=== PATIENT | female | born 1955 | race Caucasian/White ===

== ENCOUNTER → 2018-02-22 01:01 | Outpatient (CLI) | payer OTHER, SELFPAY ==
--- NOTE | 2018-02-22 10:48 | DI.REPORT_ITS ---
SYMPTOMS/DIAGNOSIS: S/P URETEROSCOPY WITH STONE EXTRACTION, ? HYDRONEPHROSIS OR ERIKA KIDNEY STONES, N20.0 RENAL ULTRASOUND: Comparison is made with noncontrast CT dated [id number]. The previously noted left hydronephrosis has resolved. Multiple echogenic foci are seen in both kidneys, greatest at the lower pole of the right kidney. There are multiple bilateral renal cysts. The largest is in the mid right kidney measuring 2.2 cm. There are no perinephric collections. The bladder is unremarkable with a prevoid volume of 58 cc's. Both ureteral jets were visualized. There is no postvoid residual. IMPRESSION: Bilateral nephrolithiasis and right renal cysts. No evidence of hydronephrosis.
== END ==
PROVIDERS: PCP Family Medicine; Visit Provider Urology
DX: N20.0 Calculus of kidney (principal); N28.1 Cyst of kidney, acquired
CPT/HCPCS: 76770

== ENCOUNTER 2018-05-02 13:17 | Outpatient (CLI) | payer OTHER, SELFPAY | END 2018-05-02 13:37 | PROVIDERS: PCP Family Medicine; Visit Provider Urology | DX: Z01.818 Encounter for other preprocedural examination (principal) | CPT/HCPCS: 87086 ==

== ENCOUNTER 2018-05-30 12:23 | Outpatient (CLI) | payer OTHER, SELFPAY | END 2018-05-30 12:43 | PROVIDERS: PCP Family Medicine; Visit Provider Urology | DX: R31.9 Hematuria, unspecified (principal) | CPT/HCPCS: 87086 ==

== ENCOUNTER 2018-07-15 01:29 | Outpatient (CLI) | payer OTHER, SELFPAY ==
--- NOTE | 2018-07-15 08:34 | DI.US_ITS ---
SYMPTOM/DIAGNOSIS: BILAT KIDNEY STONES, N20.0, S/P RT SIDED TREATMENT RENAL ULTRASOUND: Routine examination. Comparison is made with CT scan of 01/19/18. Comparison ultrasound is 02/22/18. The right kidney measures 10.5 cm. long. There are several renal cysts. There are multiple echogenic foci seen within the right kidney, the largest measuring 1 cm. There is renal cortical scarring seen in the upper pole. The appearance of the kidney is similar compared to the prior examinations. No obstruction or solid renal mass is seen. The left kidney measures 10.5 cm. long. There are several echogenic foci seen within the kidney. No hydronephrosis is present. There are left renal cysts noted. The prevoid urinary bladder volume is 144 cc's. The bladder wall appeared smooth. Both ureteral jets were seen. No intraluminal masses are present. The bladder completely emptied upon voiding. IMPRESSION: 1. Bilateral nephrolithiasis. 2. Right renal scarring. 3. Bilateral renal cysts.
== END 2018-07-15 01:49 ==
PROVIDERS: PCP Family Medicine; Visit Provider Urology
DX: N20.0 Calculus of kidney (principal); N28.1 Cyst of kidney, acquired
CPT/HCPCS: 76770

== ENCOUNTER 2019-04-04 14:43 | Outpatient (CLI) | payer OTHER, SELFPAY ==
--- NOTE | 2019-04-04 13:00 | DI.RAD_ITS ---
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 COMPARISON: No exams were available for comparison TECHNIQUE: 2D digital imaging was performed. FINDINGS: The bony structures are normally mineralized. Severe degenerative changes involving the 1st metacarp al multangular joint are identified. The examination is otherwise unremarkable.
== END 2019-04-04 15:03 ==
PROVIDERS: PCP Family Medicine; Visit Provider Nurse Practitioner
DX: M18.12 Unilateral primary osteoarthritis of first carpometacarpal joint, left hand (principal)
CPT/HCPCS: 73130

== ENCOUNTER 2019-06-19 00:08 | Outpatient (CLI) | payer OTHER, SELFPAY ==
--- NOTE | 2019-06-19 08:12 | DI.MAMMO_ITS ---
EXAM: MG MAMMO SCREENING CLINICAL HISTORY: SCREENING, Z12.39. TECHNIQUE: Full field digital CC and MLO mammographic images were obtained with 3D tomosynthesis and utilizing computer aided detection (CAD). COMPARISON: [id number] available for comparison. FINDINGS: Masses/Architectural Distortion: None seen. Microcalcifications: No suspicious pleomorphic-type are seen. Skin Thickening/Nipple Retraction: None. IMPRESSION: 1. No significant interval change with no specific features of malignancy noted. 2. Unless there is more urgent need, screening mammography is recommended, as per [employer] guidelines. BI-RADS Cat 1 - Negative Breast Density - Category A - Almost entirely fatty A negative radiographic report should not delay biopsy if a dominant or clinically suspicious mass is present. Up to ten percent of cancers are not identified on mammography. A negative report may reinforce clinical impression. Adenosis and dense breasts may obscure an underlying neoplasm. False positive reports average 6 to 10%. Patient will receive a letter notifying them of these results.
== END 2019-06-19 00:28 ==
PROVIDERS: PCP Family Medicine; Visit Provider Nurse Practitioner
DX: Z12.31 Encounter for screening mammogram for malignant neoplasm of breast (principal)
CPT/HCPCS: 77063; 77067

== ENCOUNTER 2019-11-20 14:10 | Outpatient (REF) | payer BC, SELFPAY ==
[2019-11-20 18:30] LABS: Hemoglobin A1C 6.1 % (3.8-5.6)
[2019-11-20 18:43] LABS: Vitamin D 25 Total 24.6 ng/ml (30-100)
[2019-11-20 18:47] LABS: ALT 27 U/L (14-59); AST 18 U/L (15-37); Albumin 3.7 g/dL (3.4-5.0); Alkaline Phosphatase 108 U/L (46-116); Anion Gap 7.1 mmol/L (3-11); BUN 18 mg/dL (7-18); Bilirubin, Total 0.4 mg/dL (0.2-1.0); CO2 28.9 mmol/L (21.0-32.0); CREATININE 0.93 mg/dL (0.55-1.02); Calcium 8.8 mg/dL (8.5-10.1); Calculated LDL 145 mg/dL (<100); Chloride 104 mmol/L (98-107); Cholesterol 223 mg/dL (<200); Glucose 87 mg/dL (74-106); HDL Cholesterol 50 mg/dL (40-60); Potassium 3.9 mmol/L (3.5-5.1); Sodium 140 mmol/L (136-145); Total Protein 6.9 g/dL (6.4-8.2); Triglyceride 141 mg/dL (<150); Vitamin B12 465 pg/mL (193-986)
== END 2019-11-20 14:30 ==
LOC: NCHCN 14:10
PROVIDERS: PCP Family Medicine; Visit Provider Nurse Practitioner
DX: R73.03 Prediabetes (principal); M85.80 Other specified disorders of bone density and structure, unspecified site; E78.5 Hyperlipidemia, unspecified
CPT/HCPCS: 80053; 80061; 82306; 82607; 83036

== ENCOUNTER 2019-12-19 01:47 | Outpatient (CLI) | payer BC, SELFPAY ==
--- NOTE | 2019-12-19 07:15 | DI.US_ITS ---
EXAM: US RENAL CLINICAL HISTORY: monitor known stone,. TECHNIQUE: Shah scale, color and spectral Doppler were used. COMPARISON: CT RENAL COLIC WO CONTRAST from 01/19/2018 US US renal from 07/15/2018 FINDINGS: Renal size in cm: Right: 10.6 left: 9.6 Echogenicity: Normal. Hydronephrosis: No. Cyst or mass: Multiple right simple renal cysts. Nephrolithiasis: Multiple bilateral nonobstructing stones. The largest on the right is in the superio r pole and measures 9 mm. The largest on the left is in the superior pole and also measures 9 mm. Other findings: None. Bladder:Normal. Ureteral jets: Right: Not visualized Left: Not visualized Prevoid vol:512 cc Postvoid vol:39 cc DOPPLER FINDINGS: Symmetric blood flow to the kidneys. IMPRESSION: 1. Bilateral nephrolithiasis. No evidence of hydronephrosis. 2. Right renal cysts. DATA REPOSITORY:
== END 2019-12-19 02:07 ==
PROVIDERS: PCP Family Medicine; Visit Provider Urology
DX: N20.0 Calculus of kidney (principal); N28.1 Cyst of kidney, acquired
CPT/HCPCS: 76770

== ENCOUNTER 2020-06-08 22:22 | Emergency (ER) | payer BC, SELFPAY ==
[2020-06-08 22:26] VITALS: BP 157/98; PULSE 83; RESP 24; TEMP 36.8; O2SAT 94
--- NOTE | 2020-06-08 22:30 | DI.CT_ITS ---
EXAM: CT RENAL COLIC WO CLINICAL HISTORY: Right flank pain. TECHNIQUE: Imaging Protocol: Axial computed tomography images with coronal and sagittal reformatted images were created and reviewed. COMPARISON: CT RENAL COLIC WO CONTRAST from 01/19/2018 FINDINGS: ABDOMEN: Lung Bases: Hiatal hernia noted. Mild increased markings right lung base. No confluent infiltrates in the visualized lung bases. No pleural effusions Liver: No obvious hepatic lesions evident on this noninfused study. Gallbladder and biliary tract: No obvious gallbladder pathology. CBD is not dilated. Pancreas: Normal density, no abnormal calcifications or inflammatory process. Spleen: Normal. Kidneys: Is bilateral nephrolithiasis again noted. However there is now bilateral hydronephrosis als o evident. In addition 2 nonobstructive calculi within both kidneys there is a obstructing calculus at the mid aspect of the right ureter which show some measures 10-11 millimeters in size. There is a lso a 13 millimeter calculus in the proximal left ureter, also with some dilatation left collecting s ystem above this level.. The ureters below these calculi do not contain additional calculi and no ca lculi ureterovesical junctions nor within the nondistended urinary bladder. No obvious bladder kiesha s identified. There is also a cyst in the lateral cortex of the right kidney again noted which measu res 2.4 x 2.4 centimetres. Adrenal glands: No mass is seen. Lymph nodes: Within normal limits. Abdominal Aorta: Abdominal portion non-dilated. PELVIS: Bladder:Unremarkable Bowel: No obstruction or bowel wall thickening. There is hyperdense material in the appendix but the appendix is otherwise unremarkable. No evidence of acute appendicitis. Sigmoid diverticulosis witho ut evidence of obvious acute diverticulitis. Peritoneal cavity: There is no ascites. Reproductive organs: Within normal limits. Bones: No lytic osseous lesions IMPRESSION: There is a large 13 millimeter calculus in the proximal left ureter with some dilatation left collect ing system above this level.There is also a 10-11 millimeter calculus at the mid aspect of the opposi te-right ureter dilatation of the right collecting system above this level. There also multiple calc leslie seen within both kidneys + a benign cortical cyst measuring 2.4 centimetres in the right kidney. No calculi in the urinary bladder. RADIATION DOSE DELIVERED: 843.25mGy.cm Total DLP DATA REPOSITORY: All CT scans at this facility are submitted to the National Radiology Data Registry (NRDR) Dose Index Registry (DIR) with the [employer] ([employer]). RADIATION OPTIMIZATION: All CT scans at this facility use at least one of these dose optimization te chniques: automated exposure control; mA and/or kV adjustment per patient size (includes targeted exa ms where dose is matched to clinical indication); or iterative reconstruction.
--- NOTE | 2020-06-08 22:34 | W.ED.GENAD ---
Discharge Plan Disposition Patient Disposition: [facility] Condition: Stable Discharge Details Clinical Impression: Bilateral ureteral calculi, Hydronephrosis with urinary obstruction due to ureteral calculus Primary Care Provider: Macy Pete ED Provider: Santiago Monzon [place] Meds and New Rx's Prescriptions: No Action oxybutynin chloride 5 mg tablet 5 mg PO TID PRN (Reason: bladder spasms) Qty: 10 RF: 0 fluticasone propion-salmeterol [Advair Diskus] 1 EACH blister with device 1 ea Inhalation BID RF: 0 omeprazole 20 MG capsule,delayed release(DR/EC) 20 mg PO DAILY RF: 0 montelukast 10 MG tablet 10 mg PO DAILY RF: 0 albuterol sulfate [Proventil HFA] 6.7 GM HFA aerosol inhaler 1 - 2 puff Inhalation PRN RF: 0 Discharge Data Discharge Date/Time-TO BE ENTERED AT DEPARTURE: 06/09/20 02:35 Medical Decision Making <Ny Vital - Last Filed: 06/09/20 17:36> 64 year old female presents to the ER with right flank pain which began around 4 PM this afternoon. Patient has a history of kidney stones and has had to have lithotripsies in the past. This is associated with nausea vomiting. She reports right-sided flank pain that radiates around to the right lower quadrant. Denies any fever. CBC shows white blood cell count of 12.38, sodium 138 potassium 3.9, BUN is 23, creatinine 1.31 GFR is 40.[address] RENAL COLIC WO CONTRAST 01/19/2018 10:25 AM FINDINGS: Mediastinal space: Moderate hiatal hernia. Liver: Hepatic steatosis. Gallbladder and bile ducts: Normal. No calcified stones. No ductal dilation. Pancreas: Normal. No ductal dilation. Spleen: Normal. No splenomegaly. Adrenal glands: Normal. No mass. Kidneys and ureters: 13.5 mm calculus in the left proximal ureter with mild left hydroureteronephrosis. 10 mm calculus in the right mid ureter with moderate right hydroureteronephrosis. Nonobstructing renal calculi. Stomach and bowel: Colonic diverticula. Appendix: No evidence of appendicitis. Intraperitoneal space: Unremarkable. No free air. No significant fluid collection. Vasculature: Unremarkable. No abdominal aortic aneurysm. Lymph nodes: Unremarkable. No enlarged lymph nodes. Urinary bladder: Unremarkable as visualized. Reproductive: Status post hysterectomy. Bones/joints: Unremarkable. No acute fracture. Soft tissues: Unremarkable. IMPRESSION: 1. 13.5 mm calculus in the left proximal ureter with mild left hydroureteronephrosis. 2. 10 mm calculus in the right mid ureter with moderate right hydroureteronephrosis. Thank you for allowing us to participate in the care of your patient. Dictated and Authenticated by: Eben Salmon MD Patient does have a history of bilateral kidney stones. Previous ultrasound showed 9 mm and [address] are noted above. Care is to be handed off to Dr. Nicolás BLACK pending urology consult due to possible infected kidney stone urinalysis shows positive leukocytes 10-20 WBCs. Discussed patient case and details with him. On patient reevaluation she is feeling much better. Discussed the CT results with her she verbalizes understanding at this time. She states that she has seen a specialist at [facility] for lithotripsy procedure in the past. At the time of this dictation patient was hemodynamically stable and alert and oriented. <Santiago Monzon MD - Last Filed: 06/09/20 01:38> Patient's history and tonight clinical presentation discussed with neurology at [facility], Dr. Oliveros. Patient without fever or chills with minimally elevated white count. Despite 10-20 white cells in the urine likely not infected. However, given the size of both stones present with obstruction the risk of kidney failure is quite high. Patient accepted for transfer to [facility] for stent placement later today. Patient aware of reasoning and agrees with transfer. At this time she is comfortable having just received a dose of morphine. She has made n.p.o. and fluids started. She is transferred to [facility] urology service in stable condition. Medical Records Medical records reviewed: Yes I reviewed the patient's medical records. Lab Data Lab results reviewed: Yes I reviewed the patient's lab results. HPI <Ny Vital - Last Filed: 06/09/20 17:36> General Mode of arrival: ambulatory. Date/Time Provider Initiated Documentation: 06/08/20 22:27. Limitations to Documentation: no limitations. Information obtained by: patient. HPI Narrative: 64-year-old female presents to the ER with right flank pain which began around 4 PM this afternoon. Patient has a history of kidney stones and has had to have lithotripsies in the past. There is associated with nausea vomiting. She reports right-sided flank pain that radiates around to the right lower quadrant. Denies any fever. Related Data Home Medications Medication Instructions Recorded Confirmed albuterol sulfate [Proventil HFA] 1 - 2 puff INHALATION PRN inhaler 07/23/15 06/08/20 fluticasone propion-salmeterol 1 ea INHALATION BID disk 07/23/15 06/08/20 [Advair Diskus] montelukast 10 mg PO DAILY tab-cap 07/23/15 06/08/20 omeprazole 20 mg PO DAILY tab-cap 07/23/15 06/08/20 oxybutynin chloride 5 mg tablet 5 mg PO TID PRN #10 tab 06/06/18 06/08/20 Previous Rx's Medication Instructions Recorded oxybutynin chloride 5 mg tablet 5 mg PO TID PRN #10 tab 06/06/18 Allergies Allergy/AdvReac Type Severity Reaction Status Date / Time No Known Allergies Allergy Unverified 06/06/18 10:04 General Stated Complaint: Abd Prob ALEXEI: 3 Review of Systems <Ny Vital - Last Filed: 06/09/20 17:36> Narrative: Constitutional: Negative for weight loss, alert and oriented, well groomed, normal body habitus, appears comfortable. HEENT: Denies trauma, headaches, blurry vision, nasal discharge, sore throat, trouble swallowing. Chest: Denies chest pain, palpitations, irregular rhythm, hypertension. Respiratory: Denies Shortness of breath, cough, hemoptysis. GI: Denies diarrhea, constipation. Positive abdominal pain, nausea vomiting. : Denies dysuria, hematuria, rectal bleeding. Positive right-sided flank pain. Neuro: Denies dizziness, blurry vision, weakness, syncope, headache or facial numbness. Hematologic: Denies easy bruising, intolerance to heat or cold, hair loss. PFSH <Ny Vital - Last Filed: 06/09/20 17:36> Social History Smoking/Tobacco Use Status: Never Smoking risk assessment performed?: Yes Alcohol Intake: current Alcohol Intake frequency: a few times a month Drug use: Never Do you feel safe at home: Yes Do you feel safe in your relationship?: Yes Exam <Ny Vital - Last Filed: 06/09/20 17:36> Narrative Exam Narrative: Constitutional: Alert and oriented x3. Appears stated age. Normal body habitus. Appears in acute distress. Head: Normocephalic, no trauma. Eyes: Pupils PERRLA, Red reflex noted, EOM's intact. Eyelids symmetrical without lesions, discharge, or swelling. ENT: Bilateral TM's WNL, External ear normal to inspection, no mastoid TTP, swelling, or erythema, Nasal turbinates WNL, no nasal discharge. Normal dentition, Posterior pharynx WNL, no exudate. Chest: RRR, Normal S1, S2, distal pulses intact. Resp: Lungs clear to auscultation bilaterally, no wheezes, rales, or rhonchi. Abdominal: Right CVA tenderness and right lower quadrant tenderness to palpation. Musculoskeletal: Normal gait, 5/5 strength to all four extremities. Skin: No suspicious rashes or lesions. Capillary refill less than 2 sec. Neurologic: Cranial nerves II-XII intact. Alert and oriented x 3. DTR's intact. Hematologic/Lymphatic: No ecchymosis, no lymphadenopathy. Course <Ny Vital - Last Filed: 06/09/20 17:36> Vital Signs Vital signs: Vital Signs Pulse 83 06/08/20 22:26 Respiratory Rate 24 06/08/20 22:26 Blood Pressure 157/98 H 06/08/20 22:26 Pulse Oximetry 94 06/08/20 22:26 Pulse 83 06/08/20 22:26 Respiratory Rate 24 06/08/20 22:26 Respiratory Effort 06/08/20 22:31 Blood Pressure 157/98 H 06/08/20 22:26 Blood Pressure Position Sitting 06/08/20 22:26 Pulse Oximetry 94 06/08/20 22:26 Oxygen Delivery Method Room Air 06/08/20 22:26 Oxygen Flow Rate 0 06/08/20 22:26 Pain Level 10 06/08/20 22:26 Sign Out <Ny Vital - Last Filed: 06/09/20 17:36> Sign Out Data: Sign Out Comment: Pending urology consult. Last updated by Ny Vital at 06/09/20 00:52
[2020-06-08] MEDS: Normal Saline 1,000 ML 1000 ML IV (22:53)
[2020-06-08 22:54] LABS: Abs Immature Grans 0.03 10^3/uL (0.0-0.06); Absolute Basophil Count 0.05 10^3/uL (0.0-0.2); Absolute Lymphocyte Count 0.99 10^3/uL (1.2-3.4); Absolute Monocyte Count 0.58 10^3/uL (0.1-0.8); Basophils % 0.4; Eosinophils % 0.6; HCT 41.5 % (36.0-46.0); HGB 13.2 g/dL (11.2-15.7); Immature Grans % 0.2; MCH 27.4 pg (27.0-33.0); MCHC 31.8 % (32.0-36.0); MCV 86.3 fL (80-95); MPV 11.2 fL (8.0-11.0); Monocytes % 4.7; Neutrophils % 86.1; Nucleated RBC 0 %; Platelet Count 279 10^3/uL (130-400); RBC 4.81 10^6/uL (3.93-5.22); RDW 13.9 % (11.7-14.6); RDW-SD 43.9 fL; WBC 12.38 10^3/uL (4.4-10.8)
[2020-06-08] MEDS: Ketorolac 30 MG/ML VIAL IVP (22:54)
[2020-06-08 22:55] LABS: Absolute Eosinophil Count 0.07 10^3/uL (0.0-0.7); Absolute Neutrophil Count 10.66 10^3/uL (1.2-6.7)
[2020-06-08] MEDS: Ondansetron 4 MG/2 ML VIAL IVP (22:55)
[2020-06-08 23:08] LABS: ALT 29 U/L (14-59); AST 18 U/L (15-37); Alkaline Phosphatase 108 U/L (46-116); Anion Gap 8.2 mmol/L (3-11); BUN 23 mg/dL (7-18); Bilirubin, Total 0.5 mg/dL (0.2-1.0); CO2 27.8 mmol/L (21.0-32.0); CREATININE 1.31 mg/dL (0.55-1.02); Calcium 9.2 mg/dL (8.5-10.1); Chloride 102 mmol/L (98-107); Estimated GFR 40.88 (mL/min/1.73m2); Glucose 162 mg/dL (74-106); Potassium 3.9 mmol/L (3.5-5.1); Sodium 138 mmol/L (136-145); Total Protein 8.1 g/dL (6.4-8.2)
[2020-06-08 23:32] VITALS: BP 134/84; PULSE 85; RESP 18; TEMP 37.1; O2SAT 97
--- NOTE | 2020-06-08 23:41 | DI.VRAD_ITS ---
PROCEDURE INFORMATION: Exam: CT Abdomen And Pelvis Without Contrast Exam date and time: 06/08/2020 11:27 PM Age: 64 years old Clinical indication: Other: Flank pain TECHNIQUE: Imaging protocol: Computed tomography of the abdomen and pelvis without contrast. COMPARISON: CT RENAL COLIC WO CONTRAST 01/19/2018 10:25 AM FINDINGS: Mediastinal space: Moderate hiatal hernia. Liver: Hepatic steatosis. Gallbladder and bile ducts: Normal. No calcified stones. No ductal dilation. Pancreas: Normal. No ductal dilation. Spleen: Normal. No splenomegaly. Adrenal glands: Normal. No mass. Kidneys and ureters: 13.5 mm calculus in the left proximal ureter with mild left hydroureteronephrosis. 10 mm calculus in the right mid ureter with moderate right hydroureteronephrosis. Nonobstructing renal calculi. Stomach and bowel: Colonic diverticula. Appendix: No evidence of appendicitis. Intraperitoneal space: Unremarkable. No free air. No significant fluid collection. Vasculature: Unremarkable. No abdominal aortic aneurysm. Lymph nodes: Unremarkable. No enlarged lymph nodes. Urinary bladder: Unremarkable as visualized. Reproductive: Status post hysterectomy. Bones/joints: Unremarkable. No acute fracture. Soft tissues: Unremarkable. IMPRESSION: 1. 13.5 mm calculus in the left proximal ureter with mild left hydroureteronephrosis. 2. 10 mm calculus in the right mid ureter with moderate right hydroureteronephrosis. Dictated and Authenticated by: Eben Salmon MD. Ordering:RAMY Alejandra MD
[2020-06-08 23:56] LABS: Bilirubin Negative (Negative); Blood Moderate (Negative); Clarity Clear (Clear); Glucose Negative (Negative); Ketones Negative (Negative); Leukocyte Esterase Moderate (Negative); Nitrite Negative (Negative); Specific Gravity 1.025 (1.005-1.025); Urobilinogen 0.2 EU/dL (Up TO 0.2)
[2020-06-09 00:06] LABS: Bacteria Negative HPF (Negative); Crystals Negative HPF (Negative); Epithelial Cells Rare HPF (Negative); Mucus Negative (Negative)
[2020-06-09 00:07] LABS: C & S Indicated? Yes; Casts Negative LPF (Negative)
[2020-06-09 00:44] VITALS: BP 138/68; PULSE 78; O2SAT 98
[2020-06-09 02:29] VITALS: BP 158/65; PULSE 78; RESP 18; TEMP 36.8; O2SAT 98
== END 2020-06-09 02:35 | disposition short-term general hospital (02) ==
PROVIDERS: Registered Nurse Emergency; Emergency Provider Emergency Medicine; PCP Family Medicine
DX: N13.2 Hydronephrosis with renal and ureteral calculous obstruction (principal); R11.2 Nausea with vomiting, unspecified; Z87.442 Personal history of urinary calculi
CPT/HCPCS: 36415; 80053; 96361; 96374; 96375; 99285; 74176; 81003; 81015; 85025; 87086; J1885; J2270; J2405

== ENCOUNTER 2020-06-20 19:47 | Inpatient (IN) | payer BC, SELFPAY ==
[2020-06-20] VITALS (30 sets, daily range): BP systolic 104–137; BP diastolic 51–95; PULSE 103–140; RESP 18–20; TEMP 37.1–39.5; O2SAT 93–98
--- NOTE | 2020-06-20 20:15 | RT.EKG_ITS ---
APPROVED REPORT Exam: Resting ECG Patient Location: E HR:125 bpm ECG Measurements Heart Rate 125 AXIS DE 136 P 63 QRSd 137 QRS -77 QT 320 T -27 QTc 462 Conclusion Sinus tachycardia...rate> 99 RBBB and LAFB...QRSd >120mS, axis(-40,240) Left [place] No STEMI.
--- NOTE | 2020-06-20 20:30 | W.ED.GENAD ---
Discharge Plan Disposition Patient Disposition: [facility] INPATIENT Condition: Serious Discharge Details Clinical Impression: Sepsis, UTI (urinary tract infection) Primary Care Provider: Macy Pete ED Provider: Casper Abebe Home Meds and New Rx's Prescriptions: No Action fluticasone propion-salmeterol [Advair Diskus] 1 EACH blister with device 1 ea Inhalation BID RF: 0 omeprazole 20 MG capsule,delayed release(DR/EC) 20 mg PO DAILY RF: 0 albuterol sulfate [Proventil HFA] 6.7 GM HFA aerosol inhaler 1 - 2 puff Inhalation PRN RF: 0 tamsulosin 0.4 mg capsule 0.4 mg PO DAILY RF: 0 Medical Decision Making 64-year-old female with history of asthma, recent bilateral renal stone retrieval with bilateral stent placement, presents now for 2-1/2 days of fever, chills, general malaise. Clinically she appears unwell but not toxic, pulse in the 140s, temperature 39.4. She has no recent sick exposure, abdominal pain, nausea, vomiting, flank pain, back pain, dysuria or hematuria. No pain whatsoever. We will initiate a septic work-up, give 1 L IV fluid, 1 L lactated Ringer's, and 800 p.o. Motrin. Laboratory values reveal a white blood cell count of 18.53, creatinine 1.38 with a GFR of 38.49. Troponin less than 0.05. Urine is yellow, cloudy, large blood, positive nitrate, moderate leuk esterase, 10-20 white blood cells. Likely source of infection is from the urine, 1 g IV Rocephin ordered. Chest x-ray read by radiology as no acute findings. I did discuss the case with Dr. Monzon, will obtain abdominal plain film right has been CT imaging at this time. Will be able to address placement of the stent and if large renal stones are still present. Given she has no abdominal pain, flank pain, back pain, nausea, vomiting, less likely obstruction or pyelonephritis. X-ray read by radiology as bilateral double-J shaped ureteral stent seen in place with multiple renal stones measuring up to 18 mm in size projected over the upper and lower pole of the right kidney. Covid test pending Heart rate has come down to the low 120s. Most recent temperature is 38.1. I was able to discuss the case at 2200, with Dr. Acosta, urology at [facility]. He does not believe that emergent transfer or intervention is required. He believes treating his medically for urosepsis is perfectly reasonable. He feels as though if she is not responding that obtaining CT imaging is reasonable. He does believe that initiating Andersen placement is indicated in her case. Andersen placed I then discussed the case with Dr. Greenberg, our hospitalist team here at our facility. She felt as though the patient was septic secondary to a procedure that was performed at another facility and therefore should be transferred back to a higher level of care. I once again contacted the [facility] transfer center to initiate a transfer. I received a phone call back [phone] from the transfer center stating that their urologist, Dr. Acosta would like to personally speak with our hospitalist. I received another call from Dr. Greenberg. Plan now is to obtain a renal CT without contrast. If there is evidence of hydronephrosis then will need transfer to [facility], if there is no evidence, the patient will be admitted to our facility. Renal CT obtained. I received a call from [facility] radiology stating that the hydronephrosis from previous CT has resolved. Stents are in place. There appears to be a cyst in the right kidney. Stones within the kidney. Call placed to Dr. Greenberg. She returned my phone call and accept admission, will place orders. She does request that we give a second gram of Rocephin here in the ER and initiate vancomycin therapy as well. I did place the order for the second gram of Rocephin however Dr. Monzon thought that a fluoroquinolone or aminoglycoside would be more appropriate for urosepsis. A call was then placed back to Dr. Greenberg to clarify antibiotics. I had not received a phone call back by the end of my shift, Dr. Monzon recommended initiating IV Levaquin therapy now and vancomycin can be added on by Dr. Greenberg tomorrow. HPI General Mode of arrival: ambulatory. Date/Time Provider Initiated Documentation: 06/20/20 19:48. Limitations to Documentation: no limitations. Information obtained by: patient. HPI Narrative: This is a 64-year-old female past medical history of asthma, GERD, presenting to the ER for general malaise, fever, T-max 101.9, chills that began 2-07/13 days ago. She was seen at our facility on June 09, subsequently transferred to [facility] for bilateral renal calculi. She reports that on June 14 the stones were removed and she had bilateral stents placed. She was taking Macrobid, finished that sometime last week. She has been feeling well up until just a couple days ago. She denies recent illness, sick contacts, travel. She denies headache, neck pain, chest pain, shortness of breath, nausea, vomiting, abdominal pain, back pain, flank pain, dysuria, hematuria. She took Motrin this morning, Tylenol this afternoon. Related Data Home Medications Medication Instructions Recorded Confirmed albuterol sulfate [Proventil HFA] 1 - 2 puff INHALATION PRN inhaler 07/23/15 06/20/20 fluticasone propion-salmeterol 1 ea INHALATION BID disk 07/23/15 06/20/20 [Advair Diskus] omeprazole 20 mg PO DAILY tab-cap 07/23/15 06/20/20 tamsulosin 0.4 mg PO DAILY 06/20/20 06/20/20 Allergies Allergy/AdvReac Type Severity Reaction Status Date / Time No Known Allergies Allergy Unverified 06/20/20 19:57 General Stated Complaint: Fever ALEXEI: 2 Review of Systems Constitutional Constitutional: Reports chills, Denies fatigue, Reports fever(s), Reports malaise and Denies weakness ENT Ears, Nose, Mouth, and Throat: Denies neck pain Cardiovascular Cardiovascular: Denies chest pain and Denies dyspnea Respiratory Respiratory: Denies cough and Denies dyspnea Gastrointestinal Gastrointestinal: Denies abdominal pain, Denies nausea and Denies vomiting Genitourinary Genitourinary: Denies difficulty voiding and Denies dysuria Musculoskeletal Musculoskeletal: Denies back pain and Denies neck pain Integumentary/Breasts Skin/Breast: Denies rash Neurologic Neurologic: Denies weakness Endocrine Endocrine: Denies fatigue [facility] Social History Smoking/Tobacco Use Status: Never Smoking risk assessment performed?: Yes Alcohol Intake: current Alcohol Intake frequency: a few times a month Drug use: Never Do you feel safe at home: Yes Do you feel safe in your relationship?: Yes Exam Const General: cooperative and comfortable Orientation: alert, awake and oriented x3 HENMT Head: normal to inspection, normocephalic and atraumatic Face and sinus: normal facial exam Mouth: moist mucous membranes abnormal (Slightly dry) Eyes General: appearance normal, both eyes and all related structures Conjunctivae: conjunctivae normal Sclera: sclerae normal Neck Neck: normal visual inspection, full ROM, trachea midline and supple Resp Effort & Inspection: normal respiratory effort and able to speak in complete sentences Auscultation: clear to auscultation bilaterally Cardio Rate: tachycardic (140s) Rhythm: regular rhythm GI Inspection: normal to inspection Palpation: soft, not firm and no guarding Auscultation: normal bowel sounds Back/Spine/Pelvis Back: no CVA tenderness and No back tenderness Skin General skin exam: no rashes or lesions noted Neuro General: patient alert, patient awake, moves all extremities and no focal motor deficits Cognition: normal cognition Speech: speech normal Gait: normal gait Motor: muscle tone normal throughout Sensory Exam: no sensory deficits noted Extrem General: normal to inspection, full ROM and capillary refill normal Psych Appearance: grossly normal Mental Status: mental status grossly normal Course Vital Signs Vital signs: Vital Signs Temperature 37.5 C 06/20/20 19:52 Pulse 140 H 06/20/20 19:52 Respiratory Rate 20 06/20/20 19:52 Blood Pressure 137/75 06/20/20 19:52 Pulse Oximetry 95 06/20/20 19:52 Temperature 39.4 C H 06/20/20 20:11 Temperature Source Oral 06/20/20 20:11 Pulse 140 H 06/20/20 19:52 Respiratory Rate 20 06/20/20 19:52 Respiratory Effort 06/20/20 20:13 Blood Pressure 137/75 06/20/20 19:52 Blood Pressure Position Sitting 06/20/20 19:52 Pulse Oximetry 95 06/20/20 19:52 Oxygen Delivery Method Room Air 06/20/20 19:52 Oxygen Flow Rate 0 06/20/20 19:52 Lab/Test Results Lab/Test Results: 06/20/20 20:12 Blood Blood Culture - Pending 06/20/20 20:12 Blood Blood Culture - Pending Critical Care Time Critical Care Time Critical Care Time: Yes Total Critical Care Time: 35 Attestation: Upon my evaluation, this patient had a high probability of clinically significant, life-threatening deterioration due to their current medical conditions, which required my direct attention, intervention, and personal management. I have personally provided greater than 30 minutes of critical care time exclusive of the time spend on separately billable procedures. Time includes obtaining a history, examining the patient, pulse oximetry, review of laboratory data, radiology results, discussion with consultants, arranging urgent treatment with development of a management plan, evaluation of patient's response to treatment, and monitoring for potential decompensation. Interventions were performed as documented above.
[2020-06-20] MEDS: Ibuprofen 800 MG TAB PO (20:35)
[2020-06-20] MEDS: Normal Saline 1,000 ML 1000 ML IV (20:36)
[2020-06-20 20:52] LABS: Lactate 1.3 mmol/L (0.6-1.4)
[2020-06-20 20:53] LABS: Bilirubin Negative (Negative); Blood Large (Negative); Clarity Sl Cloudy (Clear); Glucose Negative (Negative); Ketones Negative (Negative); Leukocyte Esterase Moderate (Negative); Nitrite Positive (Negative); Specific Gravity 1.015 (1.005-1.025); Urobilinogen 0.2 EU/dL (Up TO 0.2)
[2020-06-20 20:53] LABS: Abs Immature Grans 0.13 10^3/uL (0.0-0.06); HGB 12.8 g/dL (11.2-15.7); MCH 27.5 pg (27.0-33.0); MPV 11.6 fL (8.0-11.0); Nucleated RBC 0 %; Platelet Count 224 10^3/uL (130-400); RBC 4.65 10^6/uL (3.93-5.22); RDW 14.3 % (11.7-14.6); RDW-SD 44.9 fL; WBC 18.53 10^3/uL (4.4-10.8)
[2020-06-20 20:59] LABS: Bacteria Few HPF (Negative); C & S Indicated? Yes; Casts Negative LPF (Negative); Crystals Negative HPF (Negative); Epithelial Cells Few HPF (Negative); Mucus Negative (Negative)
[2020-06-20 21:09] LABS: Absolute Monocyte Count 1.85 10^3/uL (0.1-0.8); Absolute Neutrophil Count 15.38 10^3/uL (1.2-6.7); Atypical Lymphocytes % 2; Diff Comment Manual Differential
[2020-06-20] MEDS: Lactated Ringers 1,000 ML 1000 ML IV (21:10)
--- NOTE | 2020-06-20 21:15 | DI.RAD_ITS ---
EXAM: XR PORTABLE CHEST AP CLINICAL HISTORY: fever TECHNIQUE: 2D digital imaging was performed. COMPARISON: No exams were available for comparison FINDINGS: There are no prior comparison exams. The lungs are not well inflated. No gross focal infiltrate, ef fusion or pulmonary edema is seen. Heart size is within normal limits. Degenerative changes are see n in spine. IMPRESSION: No acute pulmonary findings. DATA REPOSITORY: RADIATION DOSE DELIVERED:
[2020-06-20 21:16] LABS: ALT 21 U/L (14-59); AST 13 U/L (15-37); Albumin 3.5 g/dL (3.4-5.0); Alkaline Phosphatase 80 U/L (46-116); Anion Gap 7.8 mmol/L (3-11); BUN 19 mg/dL (7-18); Bilirubin, Total 0.9 mg/dL (0.2-1.0); CO2 26.2 mmol/L (21.0-32.0); CREATININE 1.38 mg/dL (0.55-1.02); Calcium 8.9 mg/dL (8.5-10.1); Chloride 101 mmol/L (98-107); Estimated GFR 38.49 (mL/min/1.73m2); Glucose 149 mg/dL (74-106); Magnesium 1.8 mg/dL (1.8-2.4); Potassium 3.8 mmol/L (3.5-5.1); Sodium 135 mmol/L (136-145); Total Protein 7.6 g/dL (6.4-8.2)
[2020-06-20 21:24] LABS: Troponin I < 0.05 ng/mL (<0.06)
--- NOTE | 2020-06-20 21:35 | DI.RAD_ITS ---
EXAM: 2D digital imaging was performed. CLINICAL HISTORY: recent renal stone/stents. COMPARISON: CT CT RENAL COLIC WO from 06/08/2020 TECHNIQUE: Supine views of the abdomen performed. FINDINGS: BOWEL GAS PATTERN: Nondistended. CALCIFICATIONS: Calcifications are seen in the mid and lower pole of the right kidney. Calcification s are faintly seen in the mid and lower pole the left kidney. No stones are visible along the course of the stents. OSSEOUS STRUCTURES: Normal for age. OTHER FINDINGS: There are bilateral renal stents. The upper pigtails project in the expected locatio n of the renal pelves. Lower pigtails project in the region of the bladder. IMPRESSION: 1. Nonobstructive bowel gas pattern. 2. Bilateral ureteral stents. Bilateral nephrolithiasis. DATA REPOSITORY: RADIATION DOSE DELIVERED:
--- NOTE | 2020-06-20 21:41 | DI.VRAD_ITS ---
PROCEDURE INFORMATION: Exam: XR Abdomen, 1 View Exam date and time: 06/20/2020 9:26 PM Age: 64 years old Clinical indication: Abdominal pain; Generalized; Patient HX: Recent kidney stones/ stents, stent placement 06/14/20 TECHNIQUE: Imaging protocol: XR of the abdomen. Views: Frontal supine view of the abdomen. 1 View. COMPARISON: CT RENAL COLIC WO 06/08/2020 11:29 PM FINDINGS: Tubes, catheters and devices: Bilateral double-J ureteral stents are seen with the proximal ends coiled in the regions of the right and left renal pelves and their distal end coiled in the region the urinary bladder. A total of 3 coarse calcifications measuring up to 18 mm in size are projected over the upper and lower pole of the right kidney consistent with renal calculi. Gastrointestinal tract: Gas and stool are seen throughout segments of colon in a normal pattern. Little small bowel gas is visible and no pathologically dilated segments of large or small bowel are identified. No evidence of pneumoperitoneum is detected. Bones/joints: Unremarkable. IMPRESSION: Bilateral double-J ureteral stents seen in place with multiple renal stones measuring up to 18 mm in size projected over the upper and lower pole of the right kidney. Dictated and Authenticated by: Justin Cox MD. Ordering:VÍCTOR Shirley MD
--- NOTE | 2020-06-20 21:41 | DI.VRAD_ITS ---
PROCEDURE INFORMATION: Exam: XR Chest, 1 View Exam date and time: 06/20/2020 9:20 PM Age: 64 years old Clinical indication: Patient HX: Ureteral stent placement 1 week ago +/-, fever. TECHNIQUE: Imaging protocol: XR of the chest Views: 1 view. COMPARISON: No relevant prior studies available. FINDINGS: Lungs: Lungs are clear throughout with no mass or consolidation detected. Pleural space: No pneumothorax or pleural effusion is seen. Heart/Mediastinum: Heart size is normal and vessel margins are sharply defined. Bones/joints: No acute osseous lesions are detected. IMPRESSION: No acute findings. Dictated and Authenticated by: Justin Cox MD. Ordering:VÍCTOR Shirley MD
[2020-06-20] MEDS: cefTRIAXone 1 GM/50 ML BAG IVPB ×2 (22:41→23:40)
--- NOTE | 2020-06-20 23:11 | DI.CT_ITS ---
EXAM: CT RENAL COLIC WO CLINICAL HISTORY: bilateral stone retrieval, stent, now urosepsis. TECHNIQUE: Imaging Protocol: Axial computed tomography images with coronal and sagittal reformatted images were created and reviewed. CONTRAST MATERIAL: Noncontrast COMPARISON: CT CT RENAL COLIC WO from 06/08/[address] RENAL COLIC WO from 06/08/2020 FINDINGS: ABDOMEN: Lung Bases: Normal where visualized. Liver: Normal density. No measurable mass. Gallbladder and biliary tract: No radiodense calculus or dilation. Pancreas: Normal density, no abnormal calcifications or inflammatory process. Spleen: Normal. Kidneys: Bilateral ureteral stents have been placed since the prior exam. The previously noted urete ral stones are no longer present. The hydronephrosis has resolved. Multiple stones are again noted in both kidneys, right greater than left. There is scarring at the upper pole of the right kidney. Bilateral renal cysts, right greater than left are unchanged. No perinephric collections. Adrenal glands: No masses seen. Abdominal Aorta: Abdominal portion non-dilated. PELVIS: Bladder: Decompressed by Andersen catheter. Bowel: No obstruction or bowel wall thickening. Sigmoid diverticulosis. No diverticulitis. Peritoneal cavity: No ascites, collection or mesenteric inflammatory response. No mesenteric gas or r etroperitoneal gas. Bones: Degenerative disk changes L5-S1. IMPRESSION: Resolution of previously noted bilateral hydronephrosis s/p placement of ureteral stents. Ureteral s tones no longer present. RADIATION DOSE DELIVERED: 760.58mGy.cm Total DLP DATA REPOSITORY: All CT scans at this facility are submitted to the National Radiology Data Registry (NRDR) Dose Index Registry (DIR) with the [employer] ([employer]). RADIATION OPTIMIZATION: All CT scans at this facility use at least one of these dose optimization te chniques: automated exposure control; mA and/or kV adjustment per patient size (includes targeted exa ms where dose is matched to clinical indication); or iterative reconstruction.
--- NOTE | 2020-06-20 23:27 | DI.VRAD_ITS ---
Addendum created by Justin Cox MD on 06/20/2020 11:27:32 PM EST: THIS REPORT CONTAINS FINDINGS THAT MAY BE CRITICAL TO PATIENT CARE. The findings were verbally communicated via telephone conference with Casper Abebe at 11:27 PM EST on 06/20/2020. The findings were acknowledged and understood. Initial report created on 06/20/2020 11:27:19 PM EST: PROCEDURE INFORMATION: Exam: CT Abdomen And Pelvis Without Contrast Exam date and time: 06/20/2020 11:01 PM Age: 64 years old Clinical indication: Other: Urosepsis; Prior surgery; Surgery date: 3-7 days post-operative; Surgery type: Ureteral stent placement 06/14/20, bilat stone retrieval TECHNIQUE: Imaging protocol: Computed tomography of the abdomen and pelvis without contrast. Radiation optimization: All CT scans at this facility use at least one of these dose optimization techniques: automated exposure control; mA and/or kV adjustment per patient size (includes targeted exams where dose is matched to clinical indication); or iterative reconstruction. COMPARISON: CT RENAL COLIC WO 06/08/2020 11:29 PM FINDINGS: Liver: The superior segments of the liver and spleen are not included in the current scanned volume with no other hepatic or splenic lesions detected. Gallbladder and bile ducts: Unemarkable with no calcified stone or ductal dilatation detected. Pancreas: No pancreatic mass or ductal dilation. Adrenal glands: Normal. No mass. Kidneys and ureters: Bilateral double-J ureteral stents are now seen in position with their proximal ends coiled in the right and left renal pelves and their distal ends in the urinary bladder. Moderate to severe hydronephrosis and hydroureter seen bilaterally on the comparison study is resolved on the current examination and the 10 mm calcified stone seen in the midportion right ureter on the prior examination is no longer present. Multiple calcified nonobstructing renal calculi are again evident bilaterally, the largest measuring up to 16 mm in size on the right side. A 31 mm fluid attenuation cyst is again seen in the lateral parenchyma of the right kidney with no new renal masses detected. Stomach and bowel: Unremarkable. No obstruction. No mucosal thickening. Appendix: No evidence of appendicitis. Intraperitoneal space: No pneumoperitoneum or free intraperitoneal fluid detected. Vasculature: No abdominal aortic aneurysm. Lymph nodes: No lymphadenopathy detected. Urinary bladder: Nondistended with balloon tip catheter and the distal ends of two double-J ureteral stents now seen in position. Reproductive: Previous hysterectomy. Bones/joints: No acute fracture. Soft tissues: Unremarkable. IMPRESSION: Double-J ureteral stents have been placed since the prior study with resolution of the moderate to severe hydronephrosis and hydroureter seen bilaterally on the comparison study. The 10 mm calcified stone seen in the midportion of the right ureter on the prior study is no longer present with multiple calcified nonobstructing renal stones again evident bilaterally bilaterally as above. Dictated and Authenticated by: Justin Cox MD. Ordering:VÍCTOR Shirley MD
[2020-06-21] VITALS (34 sets, daily range): BP systolic 90–145; BP diastolic 40–82; PULSE 56–157; RESP 17–38; TEMP 36.2–40; O2SAT 94–100
--- NOTE | 2020-06-21 | DI.US_ITS ---
EXAM: US RENAL CLINICAL HISTORY: Pyelonephritis. TECHNIQUE: Shah scale, color and spectral Doppler were used. COMPARISON: CT CT RENAL COLIC WO from 06/20/2020 FINDINGS: The exam is limited by patient body habitus. The prior CT showed bilateral renal stents. They are n ot visualized on the current ultrasound and presumed removed. Renal size in cm: Right: 11.2 left: 11.3 Echogenicity: Normal Hydronephrosis: Mild right Cyst or mass: 2cm cyst lower pole. Nephrolithiasis: 8mm nonobstructing stone lower pole right kidney. 9mm stone upper pole right kidney . 6mm stone mid left kidney. Other findings: Right ureteral jet not seen. No perinephric collection. Blood flow demonstrated. Bladder:Normal Prevoid vol:128 Postvoid vol:0 IMPRESSION: Mild right hydronephrosis s/p removal of ureteral stents. Bilateral nonobstructing calculi. DATA REPOSITORY:
[2020-06-21] MEDS: Normal Saline 1,000 ML 1000 ML IV (01:17)
[2020-06-21] MEDS: Acetaminophen 325 MG TAB 650 MG PO ×4 (01:18→18:20)
[2020-06-21] MEDS: Normal Saline Flush 10 ML SYR IVP ×2 (01:19→19:24)
[2020-06-21] MEDS: VANCOMYCIN 1,500 MG in Normal Saline 500 ML 333.3333 MG IVPB (02:26)
[2020-06-21] MEDS: Normal Saline 1,000 ML 125 ML IV ×3 (02:27→20:00)
[2020-06-21] MEDS: Normal Saline 500 ML IV (05:50)
--- NOTE | 2020-06-21 06:26 | W.PM.HP.N ---
Date of service: 06/21/20 Time of Service: 06:26 Assessment and Plan Assessment and plan (1) Sepsis with hypotension: Status: Acute Assessment and plan: This is a post-op complication after ureteral stent placement [place] [facility] [place] for bilateral obstructive nephrolithiasis with hydronephrosis and hydroureters. Patient initiated on empiric vancomycin/ceftriaxone and well as aggressive IVF. Repeat BP 101/68. Prior urine cultures with mixed GPC delmy, no specific organism isolated. I have checked [facility] [place], and the patient's antibiotic on discharge was nitrofurantoin. Her urine C&S from 06/14/2020 at [facility] showed NGTD. Consider transfer to the ICU should this hypotension progress to shock - as well as upgrading antibiotics. Blood and urine C&S are pending, as is follow up lactate. Check CRP, procalcitonin. [facility] did not accept the patient in transfer overnight. Consult urology at our facility. I have specifically discussed ureteral stent exchange with Dr Eduardo of urology at [facility], who did not feel the patient should have it done overnight and recommended waiting. (2) Complicated UTI (urinary tract infection): Status: Acute Assessment and plan: As above (3) S/P cystoscopy with ureteral stent placement: Status: Acute Assessment and plan: 06/14/2020 [place] [facility] [place] Cornelius As above (4) HORACIO (acute kidney injury): Status: Acute Assessment and plan: Multifactorial. Continue aggressive IVF and antibiotics. Monitor Cr, I/O's, daily weights. (5) Dehydration: Status: Acute Assessment and plan: As above (6) Bilateral ureteral calculi: Status: Chronic Assessment and plan: On latest imaging, no obstructive nephrolithiasis. Hydronephrosis and hydroureters have resolved. Defer to urolog (7) DVT prophylaxis: Status: Acute Assessment and plan: SC heparin, TEDs, SCDs (8) Discharge planning issues: Status: Acute Assessment and plan: Full code. Low threshold to transfer to the ICU and to re-try transfer to [facility]. History of Present Illness History of Present Illness Chief Complaint: fever at home, malaise Narrative: Ms Pollard is a 64 year old female with PMHx of nephrolithiasis having required several cystoscopies and stone retrieval procedures, most recently done at [facility] on 06/14/[address] Cornelius, when two ureteral stents were placed and stone retrieval were performed for bilateral obstructive nephrolithiasis with bilateral hydronephrosis and hydroureters, who presented to [facility] ED c/o feeling ill since 06/18/2020, specifically reporting fevers of 101 by forehead thermometer at home, chills, malaise, and fatigue. The patient spent 3 days in her bed in [facility], which is very unusual for her. She states that she was in fact discharged home on antibiotics (starts with 'n), which she had completed. Patient's ED course was significant for a fever of 39.4, WBC of 18, HR in 140s on presentation (no hypotension in the ED), and a urinalysis c/w a UTI. Renal CT showed resolution of her B hydronephrosis. She was initiated on vancomycin and high dose ceftriaxone. A transfer to [facility] [place] service was sought, but declined due to the patient not requiring any surgical procedures emergently. Hospitalists were asked to admit the patient for further care. Since arrival to the floor, the patient's BP was noted to be 97/60 manually, of which she is asymptomatic. She reports feeling thirsty, despite receiving 3 L of IVF in the ED prior to being initiated on NS @ 125 cc, and she is receiving another bolus of 500 cc of NS. Her repeat BP is now 101/68. Review of Systems Narrative: Additionally, the patient specifically denies any known exposures to COVID-19, shortness of breath, cough, runny nose, changes to taste or smell. She endorses a sore throat post intubation for her procedure at [facility]. She denies aches/pains, nausea, dysuria. She endorses hematuria - pink urine. All systems reviewed & are unremarkable except as noted in HPI and below PFSH Medical History (Updated 06/21/20 @ 06:53 by Mary Ann Greenberg MD) Asthma Bilateral ureteral calculi GERD (gastroesophageal reflux disease) Hydronephrosis with urinary obstruction due to ureteral calculus Sensorineural hearing loss, bilateral (11/11/15) Surgical History (Updated 06/21/20 @ 06:53 by Mary Ann Greenberg MD) H/O nephrolithotomy with removal of calculi H/O removal of cyst L face S/P cystoscopy with ureteral stent placement Several; most recent 06/14/2020 [place] [facility] [place] Cornel[place] S/P partial hysterectomy Status post laser lithotripsy of ureteral calculus most recent 06/14/2020, Dr Cornelius [place] [facility] Status post total left knee replacement Family History (Updated 06/21/20 @ 06:40 by Mary Ann Greenberg MD) Father Heart disease Stroke Hypertension Cancer lung, head and neck cancer - prior smoker Mother Hypertension Social History (Updated 06/21/20 @ 06:40 by Mary Ann Greenberg MD) Smoking/Tobacco Use Status: Never Smoking risk assessment performed?: Yes Alcohol Intake: current Alcohol Intake frequency: a few times a month Drug use: Never Do you feel safe at home: Yes Do you feel safe in your relationship?: Yes Meds Home Medications and Allergies Home Medications Medication Instructions Recorded Confirmed Type albuterol sulfate [Proventil HFA] 1 - 2 puff INHALATION PRN inhaler 07/23/15 06/20/20 History fluticasone propion-salmeterol 1 ea INHALATION BID disk 07/23/15 06/20/20 History [Advair Diskus] omeprazole 20 mg PO DAILY tab-cap 07/23/15 06/20/20 History montelukast 10 mg PO DAILY 06/21/20 06/21/20 History Allergies Allergy/AdvReac Type Severity Reaction Status Date / Time No Known Allergies Allergy Unverified 06/20/20 19:57 Exam Narrative Exam Narrative: General: Very pleasant non-toxic appearing middle-aged female who is shivering, good history provider, looks clinically dehydrated Neurological: A&Ox3, No focal deficits Psychiatric: Appropriate speech pattern/content Skin: Visible skin intact, no obvious skin tenting HEENT: Atraumatic, normocephalic, EOMI, dry MM, clear oropharynx, no submandibular or cervical lymphadenopathy, no goiter or JVD Cardiovascular: RRR, HR in low 100's - high 90's, no m/r/g Lungs: CTAB Gastrointestinal: soft, nontender, nondistended Genitourinary: deferred Extremities: no e/c/c BLE's Results Imaging Additional studies: CXR: No acute findings. KUB: Bilateral double-J ureteral stents seen in place with multiple renal stones measuring up to 18 mm in size projected over the upper and lower pole of the right kidney. CT abdomen/pelvis: Double-J ureteral stents have been placed since the prior study with resolution of the moderate to severe hydronephrosis and hydroureter seen bilaterally on the comparison study. The 10 mm calcified stone seen in the midportion of the right ureter on the prior study is no longer present with multiple calcified nonobstructing renal stones again evident bilaterally bilaterally as above. Labs Result diagrams: 06/20/20 20:20 06/20/20 20:20 Labs: Laboratory Results - last 24 hr 06/20/20 06/20/20 06/20/20 20:20 20:20 20:20 WBC 18.53 H RBC 4.65 Hgb 12.8 Hct 40.0 MCV 86.0 MCH 27.5 MCHC 32.0 RDW 14.3 Plt Count 224 MPV 11.6 H Immature Gran % See Differential Neutrophils % 83.0 Lymphocytes % 5.0 Atypical Lymphs % 2 Monocytes % 10.0 Eosinophils % 0.0 Basophils % 0.0 Nucleated RBC % 0 Absolute Neutrophils 15.38 H Absolute Lymphocytes 1.30 Absolute Monocytes 1.85 H Absolute Eosinophils 0.00 Absolute Basophils 0.00 VBG Lactate 1.3 Sodium 135 L Potassium 3.8 Chloride 101 Carbon Dioxide 26.2 Anion Gap 7.8 BUN 19 H Creatinine 1.38 H Estimated GFR/1.73 m2 38.49 Glucose 149 H Calcium 8.9 Magnesium 1.8 Total Bilirubin 0.9 AST 13 L ALT 21 Alkaline Phosphatase 80 Troponin I < 0.05 Total Protein 7.6 Albumin 3.5 Urine Color Urine Clarity Urine pH Ur Specific [place] Urine Protein Urine Ketones Urine Blood Urine Nitrite Urine Bilirubin Urine Urobilinogen Ur Leukocyte Esterase Urine RBC Urine WBC Ur Epithelial Cells Urine Crystals Urine Bacteria Urine Casts Urine Mucus Ur Culture Indicated? Urine Glucose 06/20/20 20:45 WBC RBC Hgb Hct MCV MCH MCHC RDW Plt Count MPV Immature Gran % Neutrophils % Lymphocytes % Atypical Lymphs % Monocytes % Eosinophils % Basophils % Nucleated RBC % Absolute Neutrophils Absolute Lymphocytes Absolute Monocytes Absolute Eosinophils Absolute Basophils VBG Lactate Sodium Potassium Chloride Carbon Dioxide Anion Gap BUN Creatinine Estimated GFR/1.73 m2 Glucose Calcium Magnesium Total Bilirubin AST ALT Alkaline Phosphatase Troponin I Total Protein Albumin Urine Color Yellow Urine Clarity Sl cloudy Urine pH 7.0 Ur Specific [place] 1.015 Urine Protein 100 H Urine Ketones Negative Urine Blood Large H Urine Nitrite Positive H Urine Bilirubin Negative Urine Urobilinogen 0.2 Ur Leukocyte Esterase Moderate H Urine RBC 5-10 H Urine WBC 10-20 H Ur Epithelial Cells Few Urine Crystals Negative Urine Bacteria Few Urine Casts Negative Urine Mucus Negative Ur Culture Indicated? Yes Urine Glucose Negative Last Vital Signs Temp 37.3 C 06/21/20 04:52 Pulse 110 H 06/21/20 04:52 Resp 18 06/21/20 04:52 BP 97/60 L 06/21/20 04:59 Pulse Ox 95 06/21/20 04:52 COVID-19 Screening Have you, or household traveled for leisure in last 14 days?: No Had IN PERSON contact w/suspected or confirmed C-19 person: No
[2020-06-21 06:48] LABS: Lactate 0.9 mmol/L (0.6-1.4)
[2020-06-21] MEDS: Heparin 5,000 UNITS/ML VIAL 5000 UNITS SC ×2 (06:49→22:51)
[2020-06-21 06:50] LABS: Abs Immature Grans 0.16 10^3/uL (0.0-0.06); HCT 34.6 % (36.0-46.0); HGB 11.1 g/dL (11.2-15.7); MCH 27.8 pg (27.0-33.0); MCHC 32.1 % (32.0-36.0); MCV 86.5 fL (80-95); Nucleated RBC 0 %; Platelet Count 162 10^3/uL (130-400); RDW 14.4 % (11.7-14.6); RDW-SD 46.4 fL
--- NOTE | 2020-06-21 06:59 | W.UROLOGYCON ---
Date of service: 06/21/20 Time of Service: 06:59 Assessment and Plan Assessment and plan (1) Sepsis with hypotension: Status: Acute Assessment and plan: I do not see any concerning areas that would require either surgical or interventional radiology drainage at this time. Her urine culture taken at the time of her most recent surgery is not helpful in guiding our antibiotic choices at this time. I agree with broad-spectrum antibiotics (currently on ceftriaxone and vancomycin) until the final cultures are available. I believe that the patient already has a follow-up with Dr. Cornelius next week (06/26). Depending on her clinical progress, there may be plans to remove her ureteral stents at that time. As we get closer to that planned appointment, I can check in with Dr. Cornelius and perhaps remove the stents locally if it is easier for all involved in the patient's care. (2) S/P cystoscopy with ureteral stent placement: Status: Acute History of Present Illness History of Present Illness Chief Complaint: Sepsis Narrative: This is a 64-year-old woman who has a history of bilateral kidney stones. She has required ureteroscopic intervention in the past. Her stones have all been calcium based with no prior record of a struvite stone. We had been monitoring her with renal ultrasounds every 6 months to ensure that her stone burden was stable and that she had no hydronephrosis. Her last monitoring ultrasound and office appointment was in December 2019. She presented to the emergency room 2 weeks ago with renal colic. She was found to have bilateral, large obstructing ureteral stones. I was not available on the day of her presentation, so she was transferred down to [facility] where she underwent cystoscopy and placement of bilateral ureteral stents. She had reached out to us about the possibility of having ureteroscopy done here at our facility, but she was actually able to have the procedure done sooner at [facility]. She underwent cystoscopy with bilateral ureteroscopy and holmium laser lithotripsy of her stones, extraction of her large impacted ureteral stones and replacement of bilateral ureteral stents on 06/14/2020. I was able to review the operative note and records from [facility]. She was given 2 g of Ancef IV in the perioperative time. The urine culture taking at the time of the surgery showed no bacterial growth. All stones within the ureters and collecting systems were addressed at the time of the surgery. There were very large, bulky right sided renal calcifications which were confirmed to be within the parenchyma and not within the collecting system. As such, these were not surgically accessible. The stone analysis from this most recent surgery is not yet available. She now presents to our facility with fevers and chills. She tells me the chills began about 2 days ago. She is not having any flank or abdominal pain. She does not really notice much dysuria. She does say that her urine seems a bit more cloudy than usual. A noncontrast CT shows that her stents are in good position, there is no hydronephrosis and there is no evidence of perinephric abscess or fluid collection. The large right-sided parenchymal stones remain, but there is no evidence of stone within the collecting system or ureters. Review of Systems Narrative: No vision change or dysphasia No diabetes or thyroid dysfunction No shortness of breath, cough or hemoptysis No chest pain or palpitations No nausea, vomiting, hepatitis, ulcers, jaundice No seizures, strokes or peripheral neuropathy No bleeding disorders or anemia No gout [facility] Medical History (Updated 06/21/20 @ 06:53 by Mary Ann Greenberg MD) Asthma Bilateral ureteral calculi GERD (gastroesophageal reflux disease) Hydronephrosis with urinary obstruction due to ureteral calculus Sensorineural hearing loss, bilateral (11/11/15) Surgical History (Updated 06/21/20 @ 06:53 by Mary Ann Greenberg MD) H/O nephrolithotomy with removal of calculi H/O removal of cyst L face S/P cystoscopy with ureteral stent placement Several; most recent 06/14/2020 at [facility] - Dr Cornelius S/P partial hysterectomy Status post laser lithotripsy of ureteral calculus most recent 06/14/2020, Dr Cornelius at [facility] Status post total left knee replacement Family History (Updated 06/21/20 @ 06:40 by Mary Ann Greenberg MD) Father Heart disease Stroke Hypertension Cancer lung, head and neck cancer - prior smoker Mother Hypertension Social History (Updated 06/21/20 @ 06:40 by Mary Ann Greenberg MD) Smoking/Tobacco Use Status: Never Smoking risk assessment performed?: Yes Alcohol Intake: current Alcohol Intake frequency: a few times a month Drug use: Never Do you feel safe at home: Yes Do you feel safe in your relationship?: Yes Exam Narrative Exam Narrative: She was having chills when I saw her. Her vital signs are documented elsewhere Her abdomen is soft with no guarding or rebound tenderness Her Andersen catheter is in place and is draining clear urine She is awake and alert Results Last Vital Signs Temp 37.1 C 06/21/20 06:53 Pulse 111 H 06/21/20 06:53 Resp 20 06/21/20 06:53 BP 101/68 06/21/20 06:53 Pulse Ox 96 06/21/20 06:53 Labs Result diagrams: 06/21/20 06:40 06/21/20 06:40 Labs: Laboratory Results - last 24 hr 06/20/20 06/20/20 06/20/20 20:20 20:20 20:20 WBC 18.53 H RBC 4.65 Hgb 12.8 Hct 40.0 MCV 86.0 MCH 27.5 MCHC 32.0 RDW 14.3 Plt Count 224 MPV 11.6 H Immature Gran % See Differential Neutrophils % 83.0 Lymphocytes % 5.0 Atypical Lymphs % 2 Monocytes % 10.0 Eosinophils % 0.0 Basophils % 0.0 Nucleated RBC % 0 Absolute Neutrophils 15.38 H Absolute Lymphocytes 1.30 Absolute Monocytes 1.85 H Absolute Eosinophils 0.00 Absolute Basophils 0.00 VBG Lactate 1.3 Sodium 135 L Potassium 3.8 Chloride 101 Carbon Dioxide 26.2 Anion Gap 7.8 BUN 19 H Creatinine 1.38 H Estimated GFR/1.73 m2 38.49 Glucose 149 H Calcium 8.9 Magnesium 1.8 Total Bilirubin 0.9 AST 13 L ALT 21 Alkaline Phosphatase 80 Troponin I < 0.05 Total Protein 7.6 Albumin 3.5 Urine Color Urine Clarity Urine pH Ur Specific [place] Urine Protein Urine Ketones Urine Blood Urine Nitrite Urine Bilirubin Urine Urobilinogen Ur Leukocyte Esterase Urine RBC Urine WBC Ur Epithelial Cells Urine Crystals Urine Bacteria Urine Casts Urine Mucus Ur Culture Indicated? Urine Glucose 06/20/20 06/21/20 20:45 06:40 WBC RBC Hgb Hct MCV MCH MCHC RDW Plt Count MPV Immature Gran % Neutrophils % Lymphocytes % Atypical Lymphs % Monocytes % Eosinophils % Basophils % Nucleated RBC % Absolute Neutrophils Absolute Lymphocytes Absolute Monocytes Absolute Eosinophils Absolute Basophils VBG Lactate 0.9 Sodium Potassium Chloride Carbon Dioxide Anion Gap BUN Creatinine Estimated GFR/1.73 m2 Glucose Calcium Magnesium Total Bilirubin AST ALT Alkaline Phosphatase Troponin I Total Protein Albumin Urine Color Yellow Urine Clarity Sl cloudy Urine pH 7.0 Ur Specific [place] 1.015 Urine Protein 100 H Urine Ketones Negative Urine Blood Large H Urine Nitrite Positive H Urine Bilirubin Negative Urine Urobilinogen 0.2 Ur Leukocyte Esterase Moderate H Urine RBC 5-10 H Urine WBC 10-20 H Ur Epithelial Cells Few Urine Crystals Negative Urine Bacteria Few Urine Casts Negative Urine Mucus Negative Ur Culture Indicated? Yes Urine Glucose Negative
[2020-06-21 07:00] LABS: Anion Gap 8.4 mmol/L (3-11); BUN 15 mg/dL (7-18); C-Reactive Protein 14.38 mg/dL (0.0-0.3); CO2 23.6 mmol/L (21.0-32.0); CREATININE 1.33 mg/dL (0.55-1.02); Calcium 7.6 mg/dL (8.5-10.1); Chloride 108 mmol/L (98-107); Estimated GFR 40.17 (mL/min/1.73m2); Glucose 121 mg/dL (74-106); Magnesium 1.4 mg/dL (1.8-2.4); Potassium 3.5 mmol/L (3.5-5.1); Sodium 140 mmol/L (136-145)
[2020-06-21 07:24] LABS: Absolute Monocyte Count 1.13 10^3/uL (0.1-0.8); Absolute Neutrophil Count 20.57 10^3/uL (1.2-6.7); Bands % 7; Diff Comment Manual Differential; RBC Morphology Normal
[2020-06-21 07:26] LABS: Procalcitonin 2.5 ng/mL
[2020-06-21] MEDS: Montelukast 10 MG TAB PO (07:47)
[2020-06-21] MEDS: Omeprazole 20 MG CAPCR PO (07:47)
[2020-06-21] MEDS: MAGNESIUM SULFATE 4 GM/100 ML BAG IVPB (09:08)
[2020-06-21] MEDS: Budesonide/Formoterol 160/4.5 6 GM 60 PUFF INH IH (10:35)
[2020-06-21 11:44] LABS: Source Nasopharynx
--- NOTE | 2020-06-21 12:12 | PHA.REVIEW ---
Pharmacy Admission Review - Admission Clinical Review (Last Updated 06/21/20 @ 06:39 by Mary Ann Greenberg MD) Dehydration (Acute) Discharge planning issues (Acute) DVT prophylaxis (Acute) HORACIO (acute kidney injury) (Acute) Sepsis with hypotension (Acute) Complicated UTI (urinary tract infection) (Acute) S/P cystoscopy with ureteral stent placement (Acute) Sepsis (Acute) UTI (urinary tract infection) (Acute) No Known Allergies Allergy (Unverified 06/20/20 19:57) Height 5 ft 1.02 in Weight 76 kg - Renal Dosing Renal Dosing: BUN 15 mg/dL (7-18) 06/21/20 06:40 Creatinine 1.33 mg/dL (0.55-1.02) H 06/21/20 06:40 Medications needing adjustments: Reviewed (Crcl ~39.5 mL/min meropenem renally adjusted, recommended to avoid ibuprofen in pt's with increased risk of HORACIO (PRN fever over 101)) - Anticoagulation Anticoagulation: Hgb 11.1 g/dL (11.2-15.7) L 06/21/20 06:40 Hct 34.6 % (36.0-46.0) L 06/21/20 06:40 Plt Count 162 10^3/uL (130-400) 06/21/20 06:40 Creatinine 1.33 mg/dL (0.55-1.02) H 06/21/20 06:40 DVT Prohphylaxis: Reviewed Medications: Heparin - Opiate Usage Evaluate Pain Scale/Pains Meds: N/A - Relevant Labs Sodium 140 mmol/L (136-145) 06/21/20 06:40 Potassium 3.5 mmol/L (3.5-5.1) 06/21/20 06:40 Chloride 108 mmol/L (98-107) H 06/21/20 06:40 Magnesium 1.4 mg/dL (1.8-2.4) L 06/21/20 06:40 C-Reactive Protein 14.38 mg/dL (0.0-0.3) H 06/21/20 06:40 Electrolytes, C-Reactive P, ESR: Reviewed (IV mag replacement ordered) - DM Control DM Control: Glucose 121 mg/dL (74-106) H 06/21/20 06:40 Insulin Dosing: Intervened (BG mildly elevated A1c from November 2019 was 6.1. Will mention to provider.) - Heart Failure/NY Heart Failure/NY: Troponin I < 0.05 ng/mL (<0.06) 06/20/20 20:20 EF%, MARVEL's, B-Blockers, Diuretics: Reviewed - BP Control BP Control: Blood Pressure 102/67 Blood Pressure 104/67 Blood Pressure 101/68 Blood Pressure 97/60 Blood Pressure 94/68 Blood Pressure 140/80 Blood Pressure 140/80 Blood Pressure 110/76 Blood Pressure 110/82 If elevated: N/A - Qtc Review If Elevated: N/A (QTc 462 on admission) - IV to PO Switch IV Medications: Reviewed - Home Meds Home Med List reviewed: Reviewed (fluticasone/salmeterol (has symbicort subbed for this)) - Current meds Current Medication Order Review: Reviewed - Comments Comments/Follow Ups: Watch VS, mag, BG, SCr, for culture results and for med changes (renal dose adjustments). Antibiotic Activity - Pharmacy Antibiotic Review Pharmacy Antibiotic Activity: Abx regimen adjustment (Ceftriaxone changed to meropenem, vanco continues. Blood and urine cultures pending.)
[2020-06-21 12:43] LABS: Influenza A PCR Negative (Negative); Influenza B PCR Negative (Negative); RSV PCR Negative (Negative)
[2020-06-21 12:49] LABS: COVID-19 PCR Negative (Negative)
--- NOTE | 2020-06-21 13:26 | PDOC.CMIN ---
- If Service Date Differs Date of service: 06/21/20 Time of Service: 13:26 Care Management Initial Assess REASON FOR HOSPITALIZATION:: Sepsis with hypotension PAST MEDICAL HISTORY/PAST SURGICAL HISTORY:: Medical History. Asthma. Bilateral ureteral calculi. GERD (gastroesophageal reflux disease). Hydronephrosis with urinary obstruction due to ureteral calculus. Sensorineural hearing loss, bilateral (11/11/15). Surgical History. H/O nephrolithotomy with removal of calculi. H/O removal of cyst. L face. S/P cystoscopy with ureteral stent placement. Several; most [place] [facility] [place]. S/P partial hysterectomy. Status post laser lithotripsy of ureteral calculus. most recent 06/14/2020, [place] [facility] Status post total left knee replacement PREVIOUS FUNCTIONAL STATUS/SOCIAL/FAMILY SUPPORTS:: Stephanie lives in [place], [place] with her , Narayan. They have three children- two daughters who live 'next door', and a son who lives in [place]. She has one granddaughter who lives in [place] as well. She is recently retired, and is indpendent in the community and with ADL's. CURRENT FUNCTIONAL STATUS:: Stephanie was sitting up in bed when CM met with her. She was visibly shaking and had a washcloth on her forehead. CM asked if it was ok to sit and talk, which she agreed to. She was very pleasant, even while not feeling well. Per report, she is currently on broad spectrum abx, awaiting sensitivities to determine abx treatment. CM will continue to follow. ADVANCE DIRECTIVES:: DPOA paperwork on file, Narayan listed as agent. Has patient been provided with info about the portal/API?: No Did the patient sign up for the portal?: No CODE STATUS:: Full Code INSURANCE COVERAGE / FINANCIAL ISSUES:: ReClaims/ Walk-in Appointment Scheduler CURRENT HOME/COMMUNITY SERVICES/EQUIPMENT:: No current services or equipment. PRIMARY CARE PHYSICIAN:: Macy Pete POTENTIAL DISCHARGE NEEDS:: Evaluations for further needs, follow up appointments. PATIENT/FAMILY EDUCATION NEEDS:: Review discharge instructions regarding activity levels and medications, discussion of self care needs including ask me three. ANTICIPATED BARRIERS TO DISCHARGE:: None identified at this time. TRANSPORTATION:: Via private vehicle when ready. PLAN:: Stephanie continues to be monitored closely, as she has been febrile and tachycardic. Awaiting sensitivities to determine abx course. She will likely return home once medically cleared, depending on abx treatment plan. Her will drive her home when ready. She will follow up with her PCP and discharge plan of care. CM will continue to follow.
--- NOTE | 2020-06-21 14:26 | W.PM.PROGNOT ---
Date of Service Date of service: 06/21/20 Time of Service: 14:26 Assessment and Plan Assessment and plan (1) Sepsis: Status: Acute Assessment and plan: Present time I think the patient is hemodynamically stable and can remain on the medical/surgical floor. She received aggressive IV fluid hydration in the emergency department and initially by the marionette performer. IV fluids are now down to 125 mL an hour. Patient seems to be making adequate urine output. She is still tachycardic but I think this is in response to her fever and probable bacteremia. Patient is on broad-spectrum antibiotics including meropenem and vancomycin which should be more than adequate for coverage of sepsis secondary to complicated UTI. Patient has bilateral double-J ureteral stents but there is no evidence of hydronephrosis on her CT scan. I will obtain a stat renal ultrasound just to be sure there is no evidence for abscess or new obstruction since admission. Patient may need to have her stents removed she was scheduled to see Dr. Malone next week to have the stents removed. Dr. Rueda saw no need for acute urologic intervention at this time. Continue supportive care with IV fluids broad-spectrum antibiotics with narrowing of the antibiotic treatment once we have cultures back. Continue to treat the fever with antipyretics. (2) Pyelonephritis: Status: Suspected Assessment and plan: As above (3) Complicated UTI (urinary tract infection): Status: Acute Assessment and plan: As above (4) HORACIO (acute kidney injury): Status: Acute Assessment and plan: Continue to monitor urine output provide supportive care with IV fluid hydration and avoid nephrotoxins. Repeat BMP in the morning. Obtain renal ultrasound (5) Dehydration: Status: Acute Assessment and plan: As above Subjective Subjective Interval history since last seen: Patient continues to have a febrile response with temperature up to 40 degrees associated with rigors. She denies any shortness of breath nausea or vomiting or pain. However on palpation of her left flank she has some flank tenderness. Renal CT scan done last night shows double-J ureteral stents with resolution of her previously seen moderate to severe hydronephrosis and hydroureter which was found on her prior study from June 08, 2020. Previously seen 10 mm calcified stone in the midportion right ureter is no longer present. She has multiple calcified nonobstructing renal stones in both kidneys. She also has a 31 mm fluid attenuated cyst in the lateral parenchyma of the right kidney. Blood cultures were done on admission along with a urine culture and are pending at this time. Her procalcitonin and CRP were elevated consistent with a diagnosis of sepsis. Present time patient is hemodynamically stable with normal oxygen saturation. Exam Narrative Exam Narrative: Middle-age female sitting up in bed able to converse with me and explain her history from the beginning when she first found out she had kidney stones to having had the transfer to [facility] and having the ureteral stents. She appears to be in no acute distress. She is able to talk in complete sentences does not appear to be short of breath. She is not diaphoretic and she is alert and oriented person place time circumstance. Lungs with scattered expiratory wheezes no rhonchi Heart is regular but tachycardic Abdomen soft nontender nondistended. Left flank with CVA tenderness. Andersen catheter in place draining dark-colored urine with mucus threads Objective Last Vital Signs Temp 40.0 C H 06/21/20 13:14 Pulse 129 H 06/21/20 12:53 Resp 19 06/21/20 12:53 BP 118/40 L 06/21/20 13:25 Pulse Ox 94 06/21/20 12:53 Laboratory Results - last 24 hr 06/20/20 06/20/20 06/20/20 20:20 20:20 20:20 WBC 18.53 H RBC 4.65 Hgb 12.8 Hct 40.0 MCV 86.0 MCH 27.5 MCHC 32.0 RDW 14.3 Plt Count 224 MPV 11.6 H Immature Gran % See Differential Neutrophils % 83.0 Band Neutrophils % Lymphocytes % 5.0 Atypical Lymphs % 2 Monocytes % 10.0 Eosinophils % 0.0 Basophils % 0.0 Nucleated RBC % 0 Absolute Neutrophils 15.38 H Absolute Lymphocytes 1.30 Absolute Monocytes 1.85 H Absolute Eosinophils 0.00 Absolute Basophils 0.00 RBC Morphology VBG Lactate 1.3 Sodium 135 L Potassium 3.8 Chloride 101 Carbon Dioxide 26.2 Anion Gap 7.8 BUN 19 H Creatinine 1.38 H Estimated GFR/1.73 m2 38.49 Glucose 149 H Calcium 8.9 Magnesium 1.8 Total Bilirubin 0.9 AST 13 L ALT 21 Alkaline Phosphatase 80 Troponin I < 0.05 C-Reactive Protein Total Protein 7.6 Albumin 3.5 Procalcitonin Urine Color Urine Clarity Urine pH Ur Specific [place] Urine Protein Urine Ketones Urine Blood Urine Nitrite Urine Bilirubin Urine Urobilinogen Ur Leukocyte Esterase Urine RBC Urine WBC Ur Epithelial Cells Urine Crystals Urine Bacteria Urine Casts Urine Mucus Ur Culture Indicated? Urine Glucose COVID-19 Source SARS-CoV-2 (PCR) Influenza Type A (PCR) Influenza Type B (PCR) RSV (PCR) 06/20/20 06/21/20 06/21/20 20:45 06:40 06:40 WBC RBC Hgb Hct MCV MCH MCHC RDW Plt Count MPV Immature Gran % Neutrophils % Band Neutrophils % Lymphocytes % Atypical Lymphs % Monocytes % Eosinophils % Basophils % Nucleated RBC % Absolute Neutrophils Absolute Lymphocytes Absolute Monocytes Absolute Eosinophils Absolute Basophils RBC Morphology VBG Lactate 0.9 Sodium 140 Potassium 3.5 Chloride 108 H Carbon Dioxide 23.6 Anion Gap 8.4 BUN 15 Creatinine 1.33 H Estimated GFR/1.73 m2 40.17 Glucose 121 H Calcium 7.6 L Magnesium 1.4 L Total Bilirubin AST ALT Alkaline Phosphatase Troponin I C-Reactive Protein 14.38 H Total Protein Albumin Procalcitonin 2.5 Urine Color Yellow Urine Clarity Sl cloudy Urine pH 7.0 Ur Specific [place] 1.015 Urine Protein 100 H Urine Ketones Negative Urine Blood Large H Urine Nitrite Positive H Urine Bilirubin Negative Urine Urobilinogen 0.2 Ur Leukocyte Esterase Moderate H Urine RBC 5-10 H Urine WBC 10-20 H Ur Epithelial Cells Few Urine Crystals Negative Urine Bacteria Few Urine Casts Negative Urine Mucus Negative Ur Culture Indicated? Yes Urine Glucose Negative COVID-19 Source SARS-CoV-2 (PCR) Influenza Type A (PCR) Influenza Type B (PCR) RSV (PCR) 06/21/20 06/21/20 06:40 11:30 WBC 22.60 H RBC 4.00 Hgb 11.1 L Hct 34.6 L MCV 86.5 MCH 27.8 MCHC 32.1 RDW 14.4 Plt Count 162 MPV 11.0 Immature Gran % 0.0 Neutrophils % 84.0 Band Neutrophils % 7 Lymphocytes % 4.0 Atypical Lymphs % Monocytes % 5.0 Eosinophils % 0.0 Basophils % 0.0 Nucleated RBC % 0 Absolute Neutrophils 20.57 H Absolute Lymphocytes 0.90 L Absolute Monocytes 1.13 H Absolute Eosinophils 0.00 Absolute Basophils 0.00 RBC Morphology Normal VBG Lactate Sodium Potassium Chloride Carbon Dioxide Anion Gap BUN Creatinine Estimated GFR/1.73 m2 Glucose Calcium Magnesium Total Bilirubin AST ALT Alkaline Phosphatase Troponin I C-Reactive Protein Total Protein Albumin Procalcitonin Urine Color Urine Clarity Urine pH Ur Specific [place] Urine Protein Urine Ketones Urine Blood Urine Nitrite Urine Bilirubin Urine Urobilinogen Ur Leukocyte Esterase Urine RBC Urine WBC Ur Epithelial Cells Urine Crystals Urine Bacteria Urine Casts Urine Mucus Ur Culture Indicated? Urine Glucose COVID-19 Source Nasopharynx SARS-CoV-2 (PCR) Negative Influenza Type A (PCR) Negative Influenza Type B (PCR) Negative RSV (PCR) Negative
--- NOTE | 2020-06-21 16:09 | NUR.NOTE ---
Charge was notified of the following vital signs, 7:20 t 38.8 hr 108 bp 104/67, 11:04 t 39.5 hr 103 bp 102/67, 12:50: t 37.9, hr 129 bp 118/67 13:25 t 40 bp 118/60 ,14:35 hr 110 t 39.2 bp 10/67. Charge Nurse notified MD of change in patients vital signs. Anti pyretic measure started at 7:40 am and still in progress
--- NOTE | 2020-06-21 16:19 | CHAPLAIN ---
Stephanie was resting in bed when I visited. She said she's been in touch with her by phone. They live in [place], [place]. Stephanie was previously connected to the [employer] in [place], but said she hasn't attended in several years. She said people in town will likely know she is here, but that she and her are private this kind of thing.
--- NOTE | 2020-06-21 16:49 | DI.VRAD_ITS ---
PROCEDURE INFORMATION: Exam: US Retroperitoneal; Complete; Kidneys and Bladder Exam date and time: 06/21/2020 4:20 PM Age: 64 years old Clinical indication: Other: Pylonephritis, bilateral stent placement; Prior surgery; Surgery date: 3-7 days post-operative TECHNIQUE: Imaging protocol: Real-time ultrasound of the retroperitoneum with image documentation. Complete exam focused on the kidneys and bladder. COMPARISON: SD US RENAL 12/19/2019 9:28 AM FINDINGS: Limited study due to patient body habitus and overlying bowel gas. Right kidney: The right kidney measures 11.2 x 5.1 x 5.8 cm. Mild right hydronephrosis. Stable 9 mm echogenic focus in the upper pole. A 2.0 x 2.3 x 2.7 cm avascular anechoic finding suggestive of a simple cyst. In the lower pole, there is an additional 8 mm echogenic focus which may represent a nonobstructing stone. Left kidney: The left kidney measures 11.3 x 5.2 x 6.2 cm. A 6 mm echogenic focus suggestive of a nonobstructing stone. Urinary bladder: The prevoid bladder volume is 128 mL. No postvoid residual. Only the left ureteral jet was seen. IMPRESSION: 1. Simple right upper pole 2.0 x 2.3 x 2.7 cm renal cyst. 2. Bilateral nonobstructing renal calculi. 3. Mild right hydronephrosis. 4. No postvoid bladder residual. Left ureteral jet identified. For further evaluation of ureteral stents, KUB may be more useful for evaluation. Dictated and Authenticated by: Elina Quezada MD. Ordering:[facility] Fatimah Shirley MD
[2020-06-21] MEDS: VANCOMYCIN 750 MG in Normal Saline 250 ML 250 MG IV (16:53)
[2020-06-21] MEDS: Ibuprofen 400 MG TAB PO (18:20)
[2020-06-21] MEDS: CIPROFLOXACIN 400 MG/200 ML BAG 200 MG IVPB (20:54)
[2020-06-21 22:16] LABS: COVID-19 RT-PCR UVMMC Result Negative (Negative)
[2020-06-22] VITALS (13 sets, daily range): BP systolic 114–139; BP diastolic 60–75; PULSE 67–92; RESP 16–20; TEMP 36.8–39.2; O2SAT 91–98
[2020-06-22] MEDS: Albuterol HFA 8 GM 60 PUFF INH IH (04:26)
[2020-06-22] MEDS: Acetaminophen 325 MG TAB 650 MG PO ×4 (04:29→22:24)
[2020-06-22] MEDS: Normal Saline 1,000 ML 125 ML IV ×2 (05:10→18:37)
[2020-06-22] MEDS: Heparin 5,000 UNITS/ML VIAL 5000 UNITS SC ×3 (06:22→22:24)
[2020-06-22] MEDS: VANCOMYCIN 750 MG in Normal Saline 250 ML 250 MG IV (06:22)
[2020-06-22 07:25] LABS: Abs Immature Grans 0.09 10^3/uL (0.0-0.06); Absolute Basophil Count 0.03 10^3/uL (0.0-0.2); Absolute Eosinophil Count 0.07 10^3/uL (0.0-0.7); Absolute Monocyte Count 0.95 10^3/uL (0.1-0.8); Absolute Neutrophil Count 9.43 10^3/uL (1.2-6.7); Basophils % 0.3; Eosinophils % 0.6; HCT 29.8 % (36.0-46.0); HGB 9.6 g/dL (11.2-15.7); Immature Grans % 0.8; Lymphocytes % 6.2; MCH 27.3 pg (27.0-33.0); MCHC 32.2 % (32.0-36.0); MCV 84.7 fL (80-95); MPV 11.5 fL (8.0-11.0); Monocytes % 8.4; Neutrophils % 83.7; Nucleated RBC 0 %; Platelet Count 140 10^3/uL (130-400); RBC 3.52 10^6/uL (3.93-5.22); RDW 14.9 % (11.7-14.6); WBC 11.27 10^3/uL (4.4-10.8)
[2020-06-22 07:37] LABS: Anion Gap 8.9 mmol/L (3-11); BUN 10 mg/dL (7-18); CO2 20.1 mmol/L (21.0-32.0); CREATININE 1.04 mg/dL (0.55-1.02); Calcium 7.9 mg/dL (8.5-10.1); Chloride 109 mmol/L (98-107); Estimated GFR 53.35 (mL/min/1.73m2); Glucose 125 mg/dL (74-106); Potassium 3.3 mmol/L (3.5-5.1); Sodium 138 mmol/L (136-145)
[2020-06-22] MEDS: Budesonide/Formoterol 160/4.5 6 GM 60 PUFF INH IH ×2 (07:50→22:25)
[2020-06-22] MEDS: Montelukast 10 MG TAB PO (08:22)
[2020-06-22] MEDS: Omeprazole 20 MG CAPCR PO (08:22)
[2020-06-22] MEDS: Potassium Chloride 20 MEQ TABCR 40 MEQ PO (10:19)
[2020-06-22] MEDS: CIPROFLOXACIN 400 MG/200 ML BAG 200 MG IVPB (11:20)
[2020-06-22] MEDS: ACETAMINOPHEN 1,000 MG/100 ML BTL 400 MG IVPB (12:52)
--- NOTE | 2020-06-22 13:09 | W.PM.PROGNOT ---
Date of Service Date of service: 06/22/20 Time of Service: 13:09 Assessment and Plan Assessment and plan (1) Sepsis: Start date: 06/22/20 Start time: 13:35 Status: Acute Assessment and plan: Continues to be febrile but defervescing. spoke with [place]rology [place] [facility] expect to have fevers but lower than admission, trend wbc, bmp, and CRP. No need for transfer as patient is improving even with fever and rigors. Urine cx with psuedomonas, sensitivities pending, narrow to meropneum for coverage, per urology recommendation (2) Pyelonephritis: Start date: 06/22/20 Start time: 13:38 Status: Suspected Assessment and plan: As above (3) Complicated UTI (urinary tract infection): Start date: 06/22/20 Start time: 13:38 Status: Acute Assessment and plan: As above (4) HORACIO (acute kidney injury): Start date: 06/22/20 Start time: 13:38 Status: Acute Assessment and plan: Continue to monitor urine output provide supportive care with IV fluid hydration and avoid nephrotoxins. Repeat BMP in the morning. Renal u/s FINDINGS: The exam is limited by patient body habitus. The prior CT showed bilateral renal stents. They are not visualized on the current ultrasound and presumed removed. Renal size in cm: Right: 11.2 left: 11.3 Echogenicity: Normal Hydronephrosis: Mild right Cyst or mass: 2cm cyst lower pole. Nephrolithiasis: 8mm nonobstructing stone lower pole right kidney. 9mm stone upper pole right kidney. 6mm stone mid left kidney. Other findings: Right ureteral jet not seen. No perinephric collection. Blood flow demonstrated. Bladder:Normal Prevoid vol:128 Postvoid vol:0 IMPRESSION: Mild right hydronephrosis s/p removal of ureteral stents. Bilateral nonobstructing calculi. STENTS HAVE NOT BEEN REMOVED (5) Dehydration: Start date: 06/22/20 Start time: 13:39 Status: Acute Assessment and plan: As above Renal function improving above case discussed with Dr. Melendez who is in agreement. Subjective Subjective Patient reports: other Interval history since last seen: Patient became febrile this afternoon with rigors. Spoke with urology at [facility] regarding patient status. She is improving as fevers are defervescing, this time continue antibiotics and monitoring labs, she does not need transfer, expect to have fevers that wax and wane as long as cbc, crp and vital signs are stable or improving she will not need transfer. Exam Narrative Exam Narrative: Middle-age female sitting up in bed She appears to be in no acute distress. She is able to talk in complete sentences does not appear to be short of breath. She is not diaphoretic and she is alert and oriented person place time circumstance. Lungs clears no wheezing, rhonchi or rales Heart is regular rate rhythm Abdomen soft nontender nondistended. Left flank with CVA tenderness. Andersen catheter in place draining dark-colored urine with mucus threads Objective Last Vital Signs Temp 38.6 C H 06/22/20 12:56 Pulse 92 H 06/22/20 12:56 Resp 20 06/22/20 12:56 BP 139/60 06/22/20 12:56 Pulse Ox 98 06/22/20 12:56 Laboratory Results - last 24 hr 06/20/20 06/22/20 06/22/20 21:20 06:58 06:58 WBC 11.27 H D RBC 3.52 L Hgb 9.6 L Hct 29.8 L MCV 84.7 MCH 27.3 MCHC 32.2 RDW 14.9 H Plt Count 140 MPV 11.5 H Immature Gran % 0.8 Neutrophils % 83.7 Lymphocytes % 6.2 Monocytes % 8.4 Eosinophils % 0.6 Basophils % 0.3 Nucleated RBC % 0 Absolute Neutrophils 9.43 H Absolute Lymphocytes 0.70 L Absolute Monocytes 0.95 H Absolute Eosinophils 0.07 Absolute Basophils 0.03 Sodium 138 Potassium 3.3 L Chloride 109 H Carbon Dioxide 20.1 L Anion Gap 8.9 BUN 10 Creatinine 1.04 H Estimated GFR/1.73 m2 53.35 Glucose 125 H Calcium 7.9 L Magnesium 2.0 SARS-CoV-2 (PCR) Negative Nasopharyn COVID-19 PCR Not Applicable Ref Test Perform Site [facility] lab
--- NOTE | 2020-06-22 15:10 | PDOC.CMPRO ---
- If Service Date Differs Date of service: 06/22/20 Time of Service: 15:10 Care Management Progress Note S/O: Stephanie remains acute and on IV abx. Per interdisciplinary rounds she is improving with the current antibiotics. Anticipate she will transition to oral abx and return home when medically cleared. A: Stephanie is a 64 year old patient admitted with sepsis, fever resulting in hypotension. P: Stephanie continues to be monitored closely, and discharged home when medically ready. She will likely return home on oral antibiotics. Her will drive her home when ready. She will follow up with her PCP and discharge plan of care. CM will continue to follow.
[2020-06-22] MEDS: Albuterol 2.5 MG/3 ML INH SOLN VIAL UPD (22:03)
[2020-06-22] MEDS: Ibuprofen 400 MG TAB PO (22:27)
[2020-06-23] VITALS (10 sets, daily range): BP systolic 109–142; BP diastolic 67–86; PULSE 65–95; RESP 17–24; TEMP 36.5–39.3; O2SAT 94–100
[2020-06-23] MEDS: Normal Saline 1,000 ML 125 ML IV (03:29)
[2020-06-23] MEDS: Heparin 5,000 UNITS/ML VIAL 5000 UNITS SC ×3 (07:00→21:36)
[2020-06-23] MEDS: Budesonide/Formoterol 160/4.5 6 GM 60 PUFF INH IH ×2 (07:32→19:55)
[2020-06-23 07:47] LABS: Abs Immature Grans 0.05 10^3/uL (0.0-0.06); Absolute Basophil Count 0.03 10^3/uL (0.0-0.2); Absolute Eosinophil Count 0.19 10^3/uL (0.0-0.7); Absolute Lymphocyte Count 0.82 10^3/uL (1.2-3.4); Absolute Monocyte Count 0.77 10^3/uL (0.1-0.8); Absolute Neutrophil Count 6.06 10^3/uL (1.2-6.7); Basophils % 0.4; Eosinophils % 2.4; HCT 29.9 % (36.0-46.0); HGB 9.6 g/dL (11.2-15.7); Immature Grans % 0.6; Lymphocytes % 10.4; MCH 27.6 pg (27.0-33.0); MCHC 32.1 % (32.0-36.0); MCV 85.9 fL (80-95); Monocytes % 9.7; Neutrophils % 76.5; Nucleated RBC 0 %; Platelet Count 154 10^3/uL (130-400); RBC 3.48 10^6/uL (3.93-5.22); RDW 14.9 % (11.7-14.6); WBC 7.92 10^3/uL (4.4-10.8)
[2020-06-23 07:59] LABS: Anion Gap 8.6 mmol/L (3-11); BUN 8 mg/dL (7-18); C-Reactive Protein 15.42 mg/dL (0.0-0.3); CO2 22.4 mmol/L (21.0-32.0); CREATININE 0.86 mg/dL (0.55-1.02); Calcium 8.3 mg/dL (8.5-10.1); Chloride 110 mmol/L (98-107); Glucose 105 mg/dL (74-106); Potassium 3.4 mmol/L (3.5-5.1); Sodium 141 mmol/L (136-145)
[2020-06-23] MEDS: Montelukast 10 MG TAB PO (08:39)
[2020-06-23] MEDS: Omeprazole 20 MG CAPCR PO (08:40)
[2020-06-23] MEDS: Potassium Chloride 20 MEQ TABCR 40 MEQ PO ×2 (09:19→13:13)
[2020-06-23] MEDS: Normal Saline Flush 10 ML SYR IVP (10:12)
--- NOTE | 2020-06-23 11:02 | PDOC.CMPRO ---
- If Service Date Differs Date of service: 06/23/20 Time of Service: 11:02 Care Management Progress Note S/O: Stephanie remains acute and on IV abx. Per interdisciplinary rounds she is improving with the current antibiotics. She does continue to have intermittent fevers. Urology to see her Wednesday. Anticipate she will transition to oral abx and return home when medically cleared. A: Stephanie is a 64 year old patient admitted with sepsis, fever resulting in hypotension. P: Stephanie continues to be monitored closely, and discharged home when medically ready. She will likely return home on oral antibiotics. Her will drive her home when ready. She will follow up with her PCP and discharge plan of care. CM will continue to follow.
--- NOTE | 2020-06-23 12:33 | PGE_ITS ---
Date of Service Date of service: 06/23/20 Time of Service: 12:37 Assessment and Plan Assessment and plan (1) Sepsis: Start date: 06/23/20 Start time: 12:46 Status: Acute Assessment and plan: Febrile, growing pseudomonas pansensitive, will switch to cipro IV with plans to transition to oral for 7 days IV antibiotics, possible discharge home tomorrow or Wednesday Blood cultures negative after 48 hours (2) Pyelonephritis: Start date: 06/23/20 Start time: 12:53 Status: Suspected Assessment and plan: As above (3) Complicated UTI (urinary tract infection): Start date: 06/23/20 Start time: 12:53 Status: Acute Assessment and plan: As above (4) HORACIO (acute kidney injury): Start date: 06/23/20 Status: Resolved Assessment and plan: Continue to monitor urine output provide supportive care with IV fluid hydration and avoid nephrotoxins. Repeat BMP in the morning. Renal u/s FINDINGS: The exam is limited by patient body habitus. The prior CT showed bilateral renal stents. They are not visualized on the current ultrasound and presumed removed. Renal size in cm: Right: 11.2 left: 11.3 Echogenicity: Normal Hydronephrosis: Mild right Cyst or mass: 2cm cyst lower pole. Nephrolithiasis: 8mm nonobstructing stone lower pole right kidney. 9mm stone upper pole right kidney. 6mm stone mid left kidney. Other findings: Right ureteral jet not seen. No perinephric collection. Blood flow demonstrated. Bladder:Normal Prevoid vol:128 Postvoid vol:0 IMPRESSION: Mild right hydronephrosis s/p removal of ureteral stents. Bilateral nonobstructing calculi. STENTS HAVE NOT BEEN REMOVED Renal function has improved, to baseline (5) Dehydration: Start date: 06/23/20 Start time: 12:54 Status: Resolved Assessment and plan: As above Renal function improving above case discussed with Dr. Melendez who is in agreement. Subjective Subjective Patient reports: feels better Interval history since last seen: Continues to have fevers, though feeling better, switching to cipro, with possible transition to oral for discharge. She has appt with [facility] for Wed stent removal. Blood cultures no growth to date. Possible discharge home tomorrow or wednesday on oral antibx. She denies CP, SOB, N/V/D Exam Narrative Exam Narrative: Middle-age female sitting up in chair She appears to be in no acute distress. She is able to talk in complete sentences does not appear to be short of breath. She is not diaphoretic and she is alert and oriented person place time circumstance. Lungs clears no wheezing, rhonchi or rales Heart is regular rate rhythm Abdomen soft nontender nondistended. Left flank without CVA tenderness. Andersen catheter in place draining yellow colored urine. Objective Last Vital Signs Temp 37.1 C 06/23/20 11:43 Pulse 71 06/23/20 11:43 Resp 17 06/23/20 11:43 BP 124/77 06/23/20 11:43 Pulse Ox 97 06/23/20 11:43 Laboratory Results - last 24 hr 06/23/20 06/23/20 06:50 06:50 WBC 7.92 RBC 3.48 L Hgb 9.6 L Hct 29.9 L MCV 85.9 MCH 27.6 MCHC 32.1 RDW 14.9 H Plt Count 154 MPV 12.0 H Immature Gran % 0.6 Neutrophils % 76.5 Lymphocytes % 10.4 Monocytes % 9.7 Eosinophils % 2.4 Basophils % 0.4 Nucleated RBC % 0 Absolute Neutrophils 6.06 Absolute Lymphocytes 0.82 L Absolute Monocytes 0.77 Absolute Eosinophils 0.19 Absolute Basophils 0.03 Sodium 141 Potassium 3.4 L Chloride 110 H Carbon Dioxide 22.4 Anion Gap 8.6 BUN 8 Creatinine 0.86 Estimated GFR/1.73 m2 >= 60.00 Glucose 105 Calcium 8.3 L C-Reactive Protein 15.42 H
[2020-06-23] MEDS: CIPROFLOXACIN 400 MG/200 ML BAG 200 MG IVPB (13:14)
[2020-06-23] MEDS: Acetaminophen 325 MG TAB 650 MG PO (15:53)
[2020-06-24] MEDS: CIPROFLOXACIN 400 MG/200 ML BAG 200 MG IVPB (01:12)
[2020-06-24] MEDS: Normal Saline Flush 10 ML SYR IVP (01:13)
[2020-06-24 04:49] VITALS: BP 117/74; PULSE 77; RESP 17; TEMP 37; O2SAT 94
[2020-06-24] MEDS: Heparin 5,000 UNITS/ML VIAL 5000 UNITS SC ×2 (05:07→13:43)
[2020-06-24 06:54] LABS: Abs Immature Grans 0.05 10^3/uL (0.0-0.06); Absolute Basophil Count 0.04 10^3/uL (0.0-0.2); Absolute Lymphocyte Count 1.17 10^3/uL (1.2-3.4); Absolute Monocyte Count 0.71 10^3/uL (0.1-0.8); Absolute Neutrophil Count 4.47 10^3/uL (1.2-6.7); Basophils % 0.6; HCT 31.1 % (36.0-46.0); HGB 10.2 g/dL (11.2-15.7); Immature Grans % 0.8; Lymphocytes % 17.6; MCH 27.6 pg (27.0-33.0); MCHC 32.8 % (32.0-36.0); MCV 84.1 fL (80-95); MPV 11.6 fL (8.0-11.0); Monocytes % 10.7; Neutrophils % 67.3; Nucleated RBC 0 %; Platelet Count 196 10^3/uL (130-400); RDW 14.6 % (11.7-14.6); RDW-SD 44.3 fL; WBC 6.64 10^3/uL (4.4-10.8)
[2020-06-24 07:04] LABS: Anion Gap 9.7 mmol/L (3-11); CO2 26.3 mmol/L (21.0-32.0); CREATININE 0.88 mg/dL (0.55-1.02); Calcium 8.6 mg/dL (8.5-10.1); Chloride 104 mmol/L (98-107); Glucose 102 mg/dL (74-106); Potassium 3.6 mmol/L (3.5-5.1); Sodium 140 mmol/L (136-145)
[2020-06-24 07:10] VITALS: BP 117/75; PULSE 78; RESP 20; TEMP 37.7; O2SAT 94
[2020-06-24 07:12] LABS: BUN 10 mg/dL (7-18)
[2020-06-24] MEDS: Acetaminophen 325 MG TAB 650 MG PO (07:18)
[2020-06-24] MEDS: Omeprazole 20 MG CAPCR PO (07:18)
[2020-06-24] MEDS: Potassium Chloride 20 MEQ TABCR 40 MEQ PO (07:18)
[2020-06-24] MEDS: Montelukast 10 MG TAB PO (07:18)
[2020-06-24] MEDS: Budesonide/Formoterol 160/4.5 6 GM 60 PUFF INH IH (07:19)
[2020-06-24 11:12] VITALS: BP 104/65; PULSE 65; RESP 18; TEMP 36.7; O2SAT 99
[2020-06-24] MEDS: Ciprofloxacin 500 MG TAB PO (11:33)
--- NOTE | 2020-06-24 11:37 | W.NUTRFU ---
Date of service: 06/24/20 Time of Service: 11:37 Nutritional Follow up NOTE: 64 year old female admitted with dehydration, with sepsis with hypotension with renal stones. Receiving IV abx and following regular meal plan with excellent intake. Not at nutritional risk at this time. Will continue to follow. Time Spent in Nutritional Counseling and Treatment: 0
--- NOTE | 2020-06-24 13:06 | W.PM.PROGNOT ---
Date of Service Date of service: 06/24/20 Time of Service: 13:06 Assessment and Plan Assessment and plan (1) Sepsis: Start date: 06/24/20 Start time: 13:11 Status: Acute Assessment and plan: AFebrile, since yesterday afternoon. Improving symptoms, patient feels great today growing pseudomonas pansensitive, transitioned to oral today. Blood cultures negative after 72 hours (2) Pyelonephritis: Start date: 06/24/20 Start time: 13:17 Status: Suspected Assessment and plan: As above (3) Complicated UTI (urinary tract infection): Start date: 06/24/20 Start time: 13:17 Status: Acute Assessment and plan: As above (4) HORACIO (acute kidney injury): Start date: 06/24/20 Start time: 13:17 Status: Resolved Assessment and plan: Continue to monitor urine output provide supportive care with IV fluid hydration and avoid nephrotoxins. Repeat BMP in the morning. Renal u/s FINDINGS: The exam is limited by patient body habitus. The prior CT showed bilateral renal stents. They are not visualized on the current ultrasound and presumed removed. Renal size in cm: Right: 11.2 left: 11.3 Echogenicity: Normal Hydronephrosis: Mild right Cyst or mass: 2cm cyst lower pole. Nephrolithiasis: 8mm nonobstructing stone lower pole right kidney. 9mm stone upper pole right kidney. 6mm stone mid left kidney. Other findings: Right ureteral jet not seen. No perinephric collection. Blood flow demonstrated. Bladder:Normal Prevoid vol:128 Postvoid vol:0 IMPRESSION: Mild right hydronephrosis s/p removal of ureteral stents. Bilateral nonobstructing calculi. STENTS HAVE NOT BEEN REMOVED Renal function has improved, to baseline (5) Dehydration: Start date: 06/24/20 Start time: 13:18 Status: Resolved Assessment and plan: As above Renal function improving above case discussed with Dr. Melendez who is in agreement. Subjective Subjective Patient reports: no new complaints and feels better Interval history since last seen: Doing well afebrile since 06/23, will watch for fever this afternoon. If she spikes a temperature will repeat blood cultures. Will consult with Dr. Rueda regarding recommendations with stent removal and course of treatment. WBC normalized, renal function improved, she is ambulatory and tolerating food and fluid. She denies CP, SOB, N/V/D Exam Narrative Exam Narrative: Middle-age female sitting up in chair in good spirits She appears to be in no acute distress. She is able to talk in complete sentences does not appear to be short of breath. She is not diaphoretic and she is alert and oriented person place time circumstance. Lungs clears no wheezing, rhonchi or rales Heart is regular rate rhythm Abdomen soft nontender nondistended. Left flank without CVA tenderness. Andersen catheter in place draining yellow colored urine. Objective Last Vital Signs Temp 36.7 C 06/24/20 11:12 Pulse 65 06/24/20 11:12 Resp 18 06/24/20 11:12 BP 104/65 06/24/20 11:12 Pulse Ox 99 06/24/20 11:12 Laboratory Results - last 24 hr 06/24/20 06/24/20 06:10 06:10 WBC 6.64 RBC 3.70 L Hgb 10.2 L Hct 31.1 L MCV 84.1 MCH 27.6 MCHC 32.8 RDW 14.6 Plt Count 196 MPV 11.6 H Immature Gran % 0.8 Neutrophils % 67.3 Lymphocytes % 17.6 Monocytes % 10.7 Eosinophils % 3.0 Basophils % 0.6 Nucleated RBC % 0 Absolute Neutrophils 4.47 Absolute Lymphocytes 1.17 L Absolute Monocytes 0.71 Absolute Eosinophils 0.20 Absolute Basophils 0.04 Sodium 140 Potassium 3.6 Chloride 104 Carbon Dioxide 26.3 Anion Gap 9.7 BUN 10 Creatinine 0.88 Estimated GFR/1.73 m2 >= 60.00 Glucose 102 Calcium 8.6
[2020-06-24 15:22] VITALS: BP 124/71; PULSE 74; RESP 16; TEMP 36.8; O2SAT 96
--- NOTE | 2020-06-24 16:12 | CHAPLAIN ---
Stephanie explained that she's been dealing with kidney stones and stints and a recent infection. She hopes to be going home tomorrow. She said it's been difficult for her who his home alone in [place], while she's here.
--- NOTE | 2020-06-24 16:39 | W.PM.DS.N ---
Date of service: 06/24/20 Time of Service: 16:39 DS: Diagnosis Discharge Diagnosis (1) Sepsis: Start date: 06/24/20 Start time: 16:40 Status: Resolved Asessment and Plan: WBC normalized, fevers defervesced, Spoke with Dr. Rueda he recommends a total of 10 days of cipro, follow up with [facility] on Wednesday as scheduled. (2) Pyelonephritis: Start date: 06/24/20 Start time: 16:44 Status: Resolved Asessment and Plan: as above (3) Complicated UTI (urinary tract infection): Start date: 06/24/20 Start time: 16:44 Status: Resolved Asessment and Plan: as above Discussed with Dr. Rueda who is in agreement. (4) HORACIO (acute kidney injury): Start date: 06/24/20 Start time: 16:44 Status: Resolved (5) Dehydration: Start date: 06/24/20 Start time: 16:44 Status: Resolved Discharge Plan Disposition Patient Disposition: HOME Condition: Improving Discharge Details Reason For Visit: SEPSIS DUE TO UTI, NEPHROLITHIASIS Admit Date/Time: 06/20/20 23:32 Admit Provider: Mary Ann Greenberg Attending Provider: Mary Ann Greenberg Primary Care Provider: [facility] Hospital Course: Ms Pollard is a 64 year old female with PMHx of nephrolithiasis having required several cystoscopies and stone retrieval procedures, most recently done at [facility] on 06/14/[address] Cornelius, when two ureteral stents were placed and stone retrieval were performed for bilateral obstructive nephrolithiasis with bilateral hydronephrosis and hydroureters, who presented to [facility] ED c/o feeling ill since 06/18/2020, specifically reporting fevers of 101 by forehead thermometer at home, chills, malaise, and fatigue. The patient spent 3 days in her bed in [facility], which is very unusual for her. She states that she was in fact discharged home on antibiotics (starts with 'n), which she had completed. Patient's ED course was significant for a fever of 39.4, WBC of 18, HR in 140s on presentation (no hypotension in the ED), and a urinalysis c/w a UTI. Renal CT showed resolution of her B hydronephrosis. She was initiated on vancomycin and high dose ceftriaxone. A transfer to [facility] urology service was sought, but declined due to the patient not requiring any surgical procedures emergently. Hospitalists were asked to admit the patient for further care. Over course of treatment antibiotics were narrowed to cipro from meropenem and vanco, urine grew psuedomonas, blood cultures negative. She was transitioned to cipro on 06/22 since fevers have defervesced. She is feeling great. She is ready to go home. Dr. Rueda was consulted and recommend total 10 day course of cipro, d/c kern and follow up with [facility] as scheduled on wednesday. Home Meds and New Rx's Prescriptions: New ciprofloxacin HCl 500 mg tablet 500 mg PO BID Qty: 14 RF: 0 ciprofloxacin HCl 500 mg tablet 500 mg PO BID Qty: 14 RF: 0 Bio-K plus 50 billion cell Capsule,Delayed Release(Dr/Ec) 1 cap PO DAILY Qty: 30 RF: 0 Continued fluticasone propion-salmeterol [Advair Diskus] 1 EACH blister with device 1 ea Inhalation BID RF: 0 omeprazole 20 MG capsule,delayed release(DR/EC) 20 mg PO DAILY RF: 0 albuterol sulfate [Proventil HFA] 6.7 GM HFA aerosol inhaler 1 - 2 puff Inhalation PRN RF: 0 montelukast 10 mg tablet 10 mg PO DAILY RF: 0 Discharge Instructions Instructions: Urinary Tract Infection in Women (GEN), Kidney Infection (DC), Cystoscopy (DC) Additional Instructions: Take ciproflaxicin as prescribed twice a day for 7 days Eat yogurt daily for up to one month after finishing antibiotics Follow up with [facility] on wednesday Activity:: Activity as Tolerated Equipment/Supplies:: No Equipment Needed Diet:: As Tolerated Discharge Orders Discharge Orders: Discharge Order (Routine); Ordered 06/24/20 Ordered By: Abbie Brush DS: Summary Status at Discharge Functional status at discharge: independent ambulation Overall status at discharge: patient is back to baseline Mental Status: mental status grossly normal Speech and Movement: speech and movement normal Mood: congruent mood Affect: normal affect Exam Narrative Exam Narrative: Middle-age female sitting up in chair in good spirits She appears to be in no acute distress. She is able to talk in complete sentences does not appear to be short of breath. She is not diaphoretic and she is alert and oriented person place time circumstance. Lungs clears no wheezing, rhonchi or rales Heart is regular rate rhythm Abdomen soft nontender nondistended. Left flank without CVA tenderness. Kern catheter in place draining yellow colored urine. Psych Mental Status: mental status grossly normal Speech and Movement: speech and movement normal Mood: congruent mood Affect: normal affect DS: Data Vitals/I&O Vitals and I&O: Vital Signs Temperature 36.8 C 06/24/20 15:22 Temperature Source Temporal Artery Scan 06/24/20 15:22 Pulse 74 06/24/20 15:22 Pulse Rhythm Regular 06/24/20 15:44 Respiratory Rate 16 06/24/20 15:22 Respiratory Effort Non-Labored 06/24/20 15:44 Respiratory Depth Normal 06/24/20 15:44 Respiratory Pattern Normal 06/24/20 15:44 Blood Pressure 124/71 06/24/20 15:22 Blood Pressure Mean 85 06/21/20 00:30 Blood Pressure Position Sitting 06/20/20 19:52 Pulse Oximetry 96 06/24/20 15:22 Oxygen Delivery Method Room Air 06/24/20 15:22 Oxygen Flow Rate 0 06/24/20 15:22 Pain Level 0 06/24/20 15:22 Comment 06/22/20 22:39 Intake & Output 06/23/20 06/24/20 06/24/20 23:59 11:59 23:59 Intake Total 2720 / 4870 560 / 920 360 / 920 Output Total 4550 / 7725 3900 / 3900 Balance -1830 / -2855 -3340 / -2980 360 / -2980 Weight 73.6 kg Intake: IV 1300 / 2400 200 / 200 Oral 1420 / 2470 360 / 720 360 / 720 Output: Urine 4550 / 7725 3900 / 3900 Other: Urine Color Yellow Pale Yellow Urine Appearance Clear Cloudy Cloudy Data Completed and Pending Completed studies during hospitalization [Text1]: FINDINGS: The exam is limited by patient body habitus. The prior CT showed bilateral renal stents. They are not visualized on the current ultrasound and presumed removed. Renal size in cm: Right: 11.2 left: 11.3 Echogenicity: Normal Hydronephrosis: Mild right Cyst or mass: 2cm cyst lower pole. Nephrolithiasis: 8mm nonobstructing stone lower pole right kidney. 9mm stone upper pole right kidney. 6mm stone mid left kidney. Other findings: Right ureteral jet not seen. No perinephric collection. Blood flow demonstrated. Bladder:Normal Prevoid vol:128 Postvoid vol:0 IMPRESSION: Mild right hydronephrosis s/p removal of ureteral stents. Bilateral nonobstructing calculi. DATA REPOSITORY: COMPARISON: SD US RENAL 12/19/2019 9:28 AM FINDINGS: Limited study due to patient body habitus and overlying bowel gas. Right kidney: The right kidney measures 11.2 x 5.1 x 5.8 cm. Mild right hydronephrosis. Stable 9 mm echogenic focus in the upper pole. A 2.0 x 2.3 x 2.7 cm avascular anechoic finding suggestive of a simple cyst. In the lower pole, there is an additional 8 mm echogenic focus which may represent a nonobstructing stone. Left kidney: The left kidney measures 11.3 x 5.2 x 6.2 cm. A 6 mm echogenic focus suggestive of a nonobstructing stone. Urinary bladder: The prevoid bladder volume is 128 mL. No postvoid residual. Only the left ureteral jet was seen. IMPRESSION: 1. Simple right upper pole 2.0 x 2.3 x 2.7 cm renal cyst. 2. Bilateral nonobstructing renal calculi. 3. Mild right hydronephrosis. 4. No postvoid bladder residual. Left ureteral jet identified. For further evaluation of ureteral stents, KUB may be more useful for evaluation. COMPARISON: CT CT RENAL COLIC WO from 06/08/[address] RENAL COLIC WO from 06/08/2020 FINDINGS: ABDOMEN: Lung Bases: Normal where visualized. Liver: Normal density. No measurable mass. Gallbladder and biliary tract: No radiodense calculus or dilation. Pancreas: Normal density, no abnormal calcifications or inflammatory process. Spleen: Normal. Kidneys: Bilateral ureteral stents have been placed since the prior exam. The previously noted ureteral stones are no longer present. The hydronephrosis has resolved. Multiple stones are again noted in both kidneys, right greater than left. There is scarring at the upper pole of the right kidney. Bilateral renal cysts, right greater than left are unchanged. No perinephric collections. Adrenal glands: No masses seen. Abdominal Aorta: Abdominal portion non-dilated. PELVIS: Bladder: Decompressed by Kern catheter. Bowel: No obstruction or bowel wall thickening. Sigmoid diverticulosis. No diverticulitis. Peritoneal cavity: No ascites, collection or mesenteric inflammatory response. No mesenteric gas or retroperitoneal gas. Bones: Degenerative disk changes L5-S1. IMPRESSION: Resolution of previously noted bilateral hydronephrosis s/p placement of ureteral stents. Ureteral stones no longer present. Labs on day of discharge: Labs from last 24 hours 06/24/20 06/24/20 06:10 06:10 WBC 6.64 RBC 3.70 L Hgb 10.2 L Hct 31.1 L MCV 84.1 MCH 27.6 MCHC 32.8 RDW 14.6 Plt Count 196 MPV 11.6 H Immature Gran % 0.8 Neutrophils % 67.3 Lymphocytes % 17.6 Monocytes % 10.7 Eosinophils % 3.0 Basophils % 0.6 Nucleated RBC % 0 Absolute Neutrophils 4.47 Absolute Lymphocytes 1.17 L Absolute Monocytes 0.71 Absolute Eosinophils 0.20 Absolute Basophils 0.04 Sodium 140 Potassium 3.6 Chloride 104 Carbon Dioxide 26.3 Anion Gap 9.7 BUN 10 Creatinine 0.88 Estimated GFR/1.73 m2 >= 60.00 Glucose 102 Calcium 8.6 Preliminary micro results at discharge 06/20/20 21:15 Blood Culture - Preliminary Blood NO GROWTH 72 HOURS 06/20/20 20:20 Blood Culture - Preliminary Blood NO GROWTH 72 HOURS [facility] Medical History Asthma Bilateral ureteral calculi GERD (gastroesophageal reflux disease) Hydronephrosis with urinary obstruction due to ureteral calculus Sensorineural hearing loss, bilateral (11/11/15) Surgical History H/O nephrolithotomy with removal of calculi H/O removal of cyst L face S/P cystoscopy with ureteral stent placement Several; most recent 06/14/2020 at [facility] - Dr Cornelius S/P partial hysterectomy Status post laser lithotripsy of ureteral calculus most recent 06/14/2020, Dr Cornelius at [facility] Status post total left knee replacement Family History Father Heart disease Stroke Hypertension Cancer lung, head and neck cancer - prior smoker Mother Hypertension Social History Smoking/Tobacco Use Status: Never Smoking risk assessment performed?: Yes Alcohol Intake: current Alcohol Intake frequency: a few times a month Drug use: Never Do you feel safe at home: Yes Do you feel safe in your relationship?: Yes
--- NOTE | 2020-06-24 17:19 | CMDISCH_ITS ---
- If Service Date Differs Date of service: 06/24/20 Time of Service: 17:20 LACE Index Scoring Tool - Questions: Length of Stay (in days): 4 - 6 Acuity (Admit via E.D.?): Yes E.D. Visits: 2 - Answers: Total Score: 9 Risk of Readmission: Low Risk Care Management Discharge Reason for Hospitalization: Sepsis with hypotension Discharge Plan: Stephanie will return home now that she is medically cleared. She will be driven home via private vehicle by her . She will follow up with her PCP and discharge plan of care, including her follow up at [facility] on Wednesday. She is happy to be going home. Patient/Family Education Needs: Review discharge instructions regarding activity levels and medications, discussion of self care needs including ask me three.
== END 2020-06-24 18:10 | disposition home or self-care (01) | DRG 872 ==
LOC: ER 06-21 00:50 → MS 06-21 00:52
PROVIDERS: Internal Medicine; Nurse Practitioner Family; Admitting Provider Internal Medicine; Emergency Provider Physician Assistant; PCP Nurse Practitioner; Visit Provider Internal Medicine
DX: A41.9 Sepsis, unspecified organism (principal); N17.9 Acute kidney failure, unspecified; N10 Acute pyelonephritis; J45.909 Unspecified asthma, uncomplicated; H90.3 Sensorineural hearing loss, bilateral; K21.9 Gastro-esophageal reflux disease without esophagitis; Z87.442 Personal history of urinary calculi; E86.0 Dehydration; N20.0 Calculus of kidney; B96.5 Pseudomonas (aeruginosa) (mallei) (pseudomallei) as the cause of diseases classified elsewhere
CPT/HCPCS: 36415; 51702; 76770; 80048; 80053; 84145; 87040; 87077; 87637; 93005; 94640; 96361; 96365; 96366; 99223; 99233; 99239; 99253; 99291; 99355; U0003; 71045; 74018; 74176; 81003; 81015; 83605; 83735; 84484; 85025; 86140; 87086; 87186; 93010; J0131; J0696; J0744; J1644; J3475; J3490; J7613

== ENCOUNTER 2020-11-14 19:19 | Outpatient (REF) | payer MEDICARE, BC, SELFPAY ==
[2020-11-18 10:47] LABS: Lyme Ab w Rflx to Lyme Confirm Negative (Negative)
[2020-11-18 19:32] LABS: Anaplasma phagocytophilum Negative (Negative); B. miyamotoi PCR Negative (Negative); Babesia divergens/MO-1 Negative (Negative); Babesia duncani Negative (Negative); Babesia microti Negative (Negative); Ehrlichia chaffeensis Negative (Negative); Ehrlichia ewingii/canis Negative (Negative); Ehrlichia muris eauclairensis Negative (Negative)
== END 2020-11-14 19:20 | disposition home or self-care (01) ==
LOC: NCHCN 19:19
PROVIDERS: PCP Nurse Practitioner; Visit Provider Physician Assistant Medical
DX: W57.XXXA Bitten or stung by nonvenomous insect and other nonvenomous arthropods, initial encounter (principal); T14.8XXA Other injury of unspecified body region, initial encounter
CPT/HCPCS: 87798; 86618

== ENCOUNTER 2020-11-20 02:11 | Outpatient (CLI) | payer MEDICARE, BC, SELFPAY ==
--- NOTE | 2020-11-20 07:44 | DI.MAMMO_ITS ---
Exam(s) MAMMO SCREENING EXAM: MAMMO SCREENING CLINICAL HISTORY: SCREENING, Z12.39. TECHNIQUE: Bilateral full field digital CC and MLO mammographic images were obtained with 3D tomosyn thesis and utilizing computer aided detection (CAD). COMPARISON: Prior mammograms dating back to 2011, the most recent being June 2019. FINDINGS: There are no new spiculated masses nor malignant appearing microcalcification groups. There is no significant architectural distortion nor skin thickening-retraction. IMPRESSION: No radiographic evidence of malignancy. BI-RADS Category 1 - Negative Breast Density - Category B - Scattered areas of fibroglandular density Breast density Category C or D implies that the patient has dense breast tissue. Dense breast tissue can make it harder to find cancer on a mammogram. Dense breast tissue is also associated with an incr eased risk of breast cancer. This information about the result of the mammogram report was provided to the patient to raise their awareness. Use this report when you speak with the patient about their risks for breast cancer, which includes their family history. At that time, you may recommend additional screening tests (Ultrasoun d or MRI) as these tests may add significant information. A negative radiographic report should not delay biopsy if a dominant or clinically suspicious mass is present. Up to ten percent of cancers are not identified on mammography. A negative report may reinforce clinical impression. Adenosis and dense breasts may obscure an underlying neoplasm. False positive reports average 6 to 10%. Patient will receive a letter notifying them of these results.
== END 2020-11-20 02:31 ==
PROVIDERS: PCP Nurse Practitioner; Visit Provider Nurse Practitioner
DX: Z12.31 Encounter for screening mammogram for malignant neoplasm of breast (principal)
CPT/HCPCS: 77063; 77067

== ENCOUNTER 2020-11-27 02:41 | Outpatient (CLI) | payer MEDICARE, BC, SELFPAY ==
[2020-11-27 16:46] LABS: Anion Gap 8.2 mmol/L (3-11); BUN 20 mg/dL (7-18); CO2 29.8 mmol/L (21.0-32.0); CREATININE 0.9 mg/dL (0.55-1.02); Chloride 106 mmol/L (98-107); Glucose 91 mg/dL (74-106); Potassium 4.2 mmol/L (3.5-5.1); Sodium 144 mmol/L (136-145)
== END 2020-11-27 02:42 | disposition home or self-care (01) ==
LOC: LBO 02:41
PROVIDERS: PCP Nurse Practitioner; Visit Provider Urology
DX: N20.0 Calculus of kidney (principal)
CPT/HCPCS: 36415; 80048

== ENCOUNTER 2020-12-19 08:52 | Outpatient (REF) | payer MEDICARE, BC, SELFPAY ==
--- NOTE | 2020-12-19 08:15 | PAPFT_PTH ---
PATIENT: Stephanie Pollard LOC: [facility]#:[id number] AGE/SX: 65/F ROOM: RE12/19/[address]: Leanne Klein : 1955 BED: DIS: 12/19/2020 SPEC #: [id number] RECD: 12/20/20 13:05 STATUS: VAHE DHALIWAL #: [id number] ADRIAN: 12/19/20 08:[address]: Leanne Klein DEPT: [facility] Cytology RECD BY: Caty Keith Tissues: 1 - CX/ENDOCX FOR PAP SMEARS Procedures: PAP THIN PREP/UVM Screening HPV DNA PROBE Comments: [id number]
[2020-12-19 19:45] LABS: Hemoglobin A1C 6.4 % (<5.7)
[2020-12-19 19:46] LABS: Calculated LDL 154 mg/dL (<100); Cholesterol 235 mg/dL (<200); HDL Cholesterol 50 mg/dL (40-60); Triglyceride 158 mg/dL (<150)
== END 2020-12-19 08:53 | disposition home or self-care (01) ==
LOC: NCHCN 08:52
PROVIDERS: PCP Nurse Practitioner; Visit Provider Nurse Practitioner
DX: E78.5 Hyperlipidemia, unspecified (principal); R73.03 Prediabetes; Z12.4 Encounter for screening for malignant neoplasm of cervix; Z11.51 Encounter for screening for human papillomavirus (HPV); Z01.419 Encounter for gynecological examination (general) (routine) without abnormal findings
CPT/HCPCS: 80061; 88142; 83036; 87624

== ENCOUNTER 2021-01-07 03:13 | Outpatient (CLI) | payer MEDICARE, BC, SELFPAY ==
[2021-01-07 12:27] LABS: Anion Gap 8.8 mmol/L (3-11); BUN 15 mg/dL (7-18); CO2 26.2 mmol/L (21.0-32.0); CREATININE 0.9 mg/dL (0.55-1.02); Calcium 8.8 mg/dL (8.5-10.1); Chloride 107 mmol/L (98-107); Glucose 92 mg/dL (74-106); Potassium 4.6 mmol/L (3.5-5.1); Sodium 142 mmol/L (136-145)
== END 2021-01-07 03:14 | disposition home or self-care (01) ==
LOC: LBO 03:14
PROVIDERS: PCP Nurse Practitioner; Visit Provider Urology
DX: N20.0 Calculus of kidney (principal)
CPT/HCPCS: 36415; 80048

== ENCOUNTER → 2021-04-10 07:55 | Outpatient (BNVA) | payer MEDICARE, BC, SELFPAY | PROVIDERS: PCP Nurse Practitioner; Referring Provider Nurse Practitioner; Visit Provider Physical Therapy Assistant | DX: Z12.11 Encounter for screening for malignant neoplasm of colon (principal); I10 Essential (primary) hypertension ==

== ENCOUNTER 2021-04-25 02:35 | Outpatient (CLI) | payer MEDICARE, BC, SELFPAY ==
[2021-04-25 10:32] LABS: Source Nasal/Nares
[2021-04-25 19:09] LABS: COVID-19 PCR Negative (Negative)
== END 2021-04-25 02:36 | disposition home or self-care (01) ==
LOC: LBO 02:36
PROVIDERS: PCP Nurse Practitioner; Visit Provider Surgery
DX: Z20.822 Contact with and (suspected) exposure to COVID-19 (principal); Z01.818 Encounter for other preprocedural examination
CPT/HCPCS: 87635

== ENCOUNTER 2021-04-28 06:16 | Day surgery (SDC) | payer MEDICARE, BC, SELFPAY ==
[2021-04-28 06:27] VITALS: BP 125/97; PULSE 79; RESP 16; TEMP 36.5; O2SAT 95
--- NOTE | 2021-04-28 06:42 | W.COLOREPORT ---
Colonoscopy Report Date of procedure: 04/28/21 Pre-op diagnosis general: Colon Cancer Screening Post-op diagnosis procedure note: same (crabtree-diverticulosis) Procedure: Colonoscopy Surgeon: Tammy Chris Anesthesia Type: General:No Airway (Carlos Chaves CRNA) Estimated blood loss (mL): 0 Pathology: none sent Complications: None Disposition: same day Indications: The patient is here for Colonoscopy pre-op. Her last screening was in 2008 and was unremarkable. She has no family history of colon cancer. She has not had any bowel habit changes. -Discussed colonoscopy bowel prep as well as the procedure. Discussed possible complications of the procedure to include bleeding, pain, perforation, missed small lesion/polyp, sore throat, aspiration and adverse reaction to the medications. Questions were answered to patient?s satisfaction. No guarantees were implied or given. Prep: Miralax/Dulcolax Procedure Start Time: 07:29 Procedure End Time: 07:47 Retraction Time: 11 minutes Findings: Crabtree-diverticulosis Procedure Description: After informed consent was obtained the patient was taken to the procedure room and placed in a left decubitous position. Monitors were applied and a time out was done. The patients name, date of , procedure, allergies to medications and metal in their body was reviewed. The patient was then sedated. Once sedated and comfortable a rectal exam was done. External exam was normal. Internal exam revealed a normal sphincter tone and no palpable masses. The scope was then introduced and retro-flexed. No internal hemorrhoids, polyps or masses were identified on retro-flexion. The scope was then advanced to the cecum without difficulty. The ileocecal vlave and appendiceal orifice were identified. The prep was good. The scope was then slowly retracted over 11 minutes back into the rectum. There were no polyps noted. There was moderate crabtree- diverticulosis noted. The scope was removed and the patient was woken up and taken back to Same day surgery in stable condition. The patient tolerated the procedure well and there were no immediate complications. Follow up: The patient should follow up in 10 years unless they develop changes in bowel habits or other new gastrointestinal complaints.
--- NOTE | 2021-04-28 06:43 | PDOC.DSDIS_ITS ---
Discharge Plan Disposition Patient Disposition: HOME Condition: Good Discharge Details Reason For Visit: Colonoscopy Attending Provider: Tammy Chris Primary Care Provider: Leanne Klein Home Meds and New Rx's Prescriptions: Continued acetaminophen [Tylenol Extra Strength] 500 mg tablet 1,000 mg PO QID PRNRF: 0 levalbuterol HCl 1.25 mg/3 mL solution for nebulization 1.25 mg inhalation Q6H PRNRF: 0 potassium citrate 10 mEq (1,080 mg) tablet extended release 20 meq PO BID RF: 0 hydrochlorothiazide 12.5 mg capsule 12.5 mg PO BID RF: 0 fluticasone propion-salmeterol [Advair Diskus] 1 EACH blister with device 1 ea Inhalation BID RF: 0 omeprazole 20 MG capsule,delayed release(DR/EC) 20 mg PO DAILY RF: 0 albuterol sulfate [Proventil HFA] 6.7 GM HFA aerosol inhaler 1 - 2 puff Inhalation PRN RF: 0 montelukast 10 mg tablet 10 mg PO DAILY RF: 0 Discharge Instructions Instructions: Diverticulosis (DC) Additional Instructions: Findings: diverticulosis Follow up: 10 years Please call if you develop: fevers >101.5 Nausea or Vomiting Abdominal pain that is not transient Rectal bleeding that is more then a tbsp A hard abdomen and inability to pass gas DAY SURGERY UNIT POST ENDOSCOPY INSTRUCTIONS Instructions for everyone who is given Anesthesia: For your safety, please do the following for the next 24 Hours: a. Do not drive or operate dangerous equipment b. Do not drink alcohol beverages or use any recreational drugs for the first 24 hours or while taking pain medications. The medications in your body may have a reaction that can be dangerous. c. Do not make any important decisions or sign any important papers 1. Generally there are no restrictions on your activity after a day or so has gone by, but you may feel a bit fatigued for a few days. 2. After you arrive home you may have a light meal and return to a normal diet as you can tolerate it without feeling sick to your stomach. 3. After surgery, you may feel pain or discomfort. This should be only tra nsient, but if it persists please contact your doctor. 4. If there are any questions regarding the findings of your procedure, please feel free to contact your doctor. 6. If you are unable to contact your doctor with a problem, contact the hospital at [phone]. 7. Continue all your regular medications unless directed otherwise. I understand the above instructions and have no questions. Signature of Patient or Responsible Adult Escort Date/Time Name of Responsible Adult Escort Signature of Nurse Date/Time Activity:: Activity as Tolerated Diet:: high fiber diet Discharge Orders Discharge Orders: Discharge Order (Routine); Ordered 04/28/21 Ordered By: Tammy Chris
[2021-04-28] MEDS: Lactated Ringers 1,000 ML 80 ML IV (06:50)
--- NOTE | 2021-04-28 07:05 | W.ANESPRE ---
General Info Date of Service Date Performed: 04/28/21 Height: 5 ft 1 in Weight: 71.6 kg Body Mass Index (BMI): 29.8 Surgical Procedure: Operation Date: 04/28/21 07:35 Proposed Procedures Side Surgeon p Braxton Chris MD Meds Allergies and Home Medications Allergies Allergy/AdvReac Type Severity Reaction Status Date / Time No Known Allergies Allergy Unverified 04/28/21 06:23 Home Medication Medication Instructions Recorded albuterol sulfate [Proventil HFA] 1 - 2 puff INHALATION PRN inhaler 07/23/15 fluticasone propion-salmeterol 1 ea INHALATION BID disk 07/23/15 [Advair Diskus] omeprazole 20 mg PO DAILY tab-cap 07/23/15 montelukast 10 mg PO DAILY 06/21/20 acetaminophen 500 mg tablet 1,000 mg PO QID PRN tab 09/13/20 levalbuterol HCl 1.25 mg/3 mL 1.25 mg INHALATION Q6H PRN ml 09/13/20 solution for nebulization hydrochlorothiazide 12.5 mg capsule 12.5 mg PO BID 04/10/21 potassium citrate 10 mEq (1,080 20 meq PO BID tab 04/10/21 mg) tablet,extended release Current Visit Medications: Current Medications Generic Name Dose Route Start Last Admin Trade Name Freq PRN Reason Stop Dose Admin Hyoscyamine Sulfate 0.125 mg 04/28/21 06:45 Hyoscyamine 0.125 Mg Sl/Oral/Chew SL DIRECTED PRN Ringer's Solution 1,000 mls @ 80 mls/hr 04/28/21 06:00 04/28/21 06:50 IV 05/25/21 23:59 80 mls/hr INFUSION ALEJANDRA Administration IV Miscellaneous Supplies 1 each 04/28/21 06:00 Iv Access IV 05/25/21 23:59 DIRECTED ALEJANDRA Ondansetron HCl 4 mg 04/28/21 06:45 Ondansetron 4 Mg/2 Ml Vial IVP Q4H PRN PRN Nausea / Vomiting Sodium Chloride 0 ml 04/28/21 06:00 Normal Saline Flush 10 Ml Syr IV 05/25/21 23:59 PRN PRN Sodium Chloride 0 ml 04/28/21 06:00 Normal Saline 10 Ml Vial IJ 05/25/21 23:59 DIRECTED PRN Sterile Water 0 ml 04/28/21 06:00 Water,Injection,Sterile 10 Ml Vial IJ 05/25/21 23:59 DIRECTED PRN PFSH Active Problems Active Problems: Problem Status Onset Code Prediabetes R73.03 Pyelonephritis N12 Dehydration E86.0 Discharge planning issues Z02.9 DVT prophylaxis Z29.9 HORACIO (acute kidney injury) N17.9 Sepsis with hypotension A41.9, I95.9 Complicated UTI (urinary tract infection) N39.0 Sepsis A41.9 S/P cystoscopy with ureteral stent placement Z96.0 Sensorineural hearing loss, bilateral 11/11/15 H90.3 Sepsis A41.9 UTI (urinary tract infection) N39.0 Sebaceous cyst 04/05/17 L72.3 Neoplasm of unspecified nature of bone, soft tissue, and skin 04/05/17 D49.2 Inclusion cyst 05/03/17 L72.0 Bilateral kidney stones 07/23/15 N20.0 Left ureteral stone N20.1 Medical History Medical History Asthma Bilateral ureteral calculi GERD (gastroesophageal reflux disease) Hiatal hernia Hydronephrosis with urinary obstruction due to ureteral calculus Hyperlipidemia Osteopenia Sensorineural hearing loss, bilateral (11/11/15) Surgical History Surgical History H/O nephrolithotomy with removal of calculi H/O removal of cyst L face S/P cystoscopy with ureteral stent placement Several; most recent 06/14/2020 at [facility] - Dr Cornelius S/P partial hysterectomy Status post laser lithotripsy of ureteral calculus most recent 06/14/2020, Dr Cornelius at [facility] Status post total left knee replacement Tobacco Smoking/Tobacco Use Status: Never Alcohol Alcohol Intake: current Alcohol intake frequency: a few times a month Substance Use Substance use: Never Substance use type: does not use Vital Signs and Lab Results Vital Signs Most Recent Vital Signs in EMR: Most Recent Vital Signs Temp Pulse Resp BP Pulse Ox 36.5 C 79 16 125/97 H 95 04/28/21 06:27 04/28/21 06:27 04/28/21 06:27 04/28/21 06:27 04/28/21 06:27 Lab Results Blood Type / Crossmatch: No Data to Display Complete Blood Count: No Data to Display Complete Metabolic Panel: No Data to Display Liver Function Panel: No Data to Display Coagulation Panel: No Data to Display Cardiac Panel: No Data to Display Arterial Blood Gas: No Data to Display Venous Blood Gas: No Data to Display Pancreas Panel: No Data to Display Thyroid Panel: No Data to Display Infectious Disease: Coronavirus (COVID-19)(PCR) Negative (Negative) 04/25/21 09:12 04/25/21 Coronavirus 2019 Source Nasal/Nares 04/25/21 09:12 04/25/21 Blood Cultures: No Data to Display Toxicology Panel: No Data to Display Anesthesia Assessment and Plan Anesthesia History Personal History: No History of Anesthesia Complications Family History: No Family History of Anesthesia Complications Exercise Tolerance Exercise Tolerance: Metabolic Equivalents>4 Pertinent Negatives Pertinent Negatives: No Symptoms of GERD and No Major Cardiovascular Symptoms or Complaints Cardiac & Pulmonary Exam Cardiac Exam: Normal S1/S2 Heart Sounds Pulmonary Exam: Clear Bilateral Breath Sounds Airway Exam Known Difficult Airway: No Mallampati Class: 2 Mouth Opening: Normal (> 3cm) Thyromental Distance: Greater than 3 cm Neck Range of Motion: Full ROM Neck Circumference: Normal Teeth Condition: Normal Dentition ASA Classification ASA Score: ASA 2 Emergency Case?: No NPO Status NPO Status: NPO Clears >2 hours, Solids >8 hours Anesthesia Plan Resuscitation Status: Full Code Anesthesia Technique: General Anesthesia Airway Planned: Natural Airway Monitors Used: Standard Monitors
[2021-04-28 07:18] VITALS: BMI 29.8
[2021-04-28 07:54] VITALS: BP 105/68; PULSE 77; RESP 16; TEMP 36.4; O2SAT 96
--- NOTE | 2021-04-28 08:10 | W.ANESPOSTOP ---
Postoperative Evaluation Date, Time and Location Date Performed: 04/28/21 Time Performed: 08:00 Patient Location: Day Surgery Unit Vital Signs Most Recent Imported Vital Signs: Most Recent Vital Signs Temp Pulse Resp BP Pulse Ox 36.4 C L 77 16 105/68 96 04/28/21 07:54 04/28/21 07:54 04/28/21 07:54 04/28/21 07:54 04/28/21 07:54 Pain Score Most Recent Pain Score: Most Recent Pain Score Pain Level 0 04/28/21 07:54 Assessment Mental Status: Awake (Alert & Oriented to Patient Baseline) Airway and Respiratory Function: Patent airway with normal (patient baseline) respiratory exam Cardiovascular Function: Hemodynamically Stable Hydration Status: Adequately Hydrated Nausea & Vomiting: No Nausea or Vomiting Pain: Pt. Denies Any Pain Peripheral Nerve Block: Patient did not receive a nerve block
== END 2021-04-28 08:48 | disposition home or self-care (01) ==
PROVIDERS: PCP Nurse Practitioner; Visit Provider Surgery
PROC: 0DJD8ZZ Inspection of Lower Intestinal Tract, Via Natural or Artificial Opening Endoscopic (ICD-10-PCS; CPT 45378; principal; 2021-04-28 07:30)
DX: Z12.11 Encounter for screening for malignant neoplasm of colon (principal); K57.30 Diverticulosis of large intestine without perforation or abscess without bleeding
CPT/HCPCS: G0121

== ENCOUNTER 2021-12-22 10:27 | Outpatient (REF) | payer MEDICARE, BC, SELFPAY ==
[2021-12-22 15:53] LABS: ALT 39 U/L (14-59); AST 25 U/L (15-37); Albumin 3.7 g/dL (3.4-5.0); Alkaline Phosphatase 95 U/L (46-116); Anion Gap 8.4 mmol/L (3-11); BUN 15 mg/dL (7-18); Bilirubin, Total 0.3 mg/dL (0.2-1.0); CO2 27.6 mmol/L (21.0-32.0); CREATININE 0.8 mg/dL (0.55-1.02); Calcium 8.9 mg/dL (8.5-10.1); Chloride 102 mmol/L (98-107); Glucose 98 mg/dL (74-106); Potassium 4.1 mmol/L (3.5-5.1); Sodium 138 mmol/L (136-145); Total Protein 7.5 g/dL (6.4-8.2)
[2021-12-22 16:32] LABS: Calculated LDL 150 mg/dL (<100); Cholesterol 226 mg/dL (<200); HDL Cholesterol 56 mg/dL (40-60); Triglyceride 103 mg/dL (<150)
[2021-12-22 21:40] LABS: Vitamin D 25 Total 22.6 ng/mL (30-100)
== END 2021-12-22 10:28 | disposition home or self-care (01) ==
LOC: NCHCN 10:27
PROVIDERS: PCP Nurse Practitioner; Visit Provider Nurse Practitioner Family
DX: R73.03 Prediabetes (principal); E78.5 Hyperlipidemia, unspecified; E55.9 Vitamin D deficiency, unspecified; K21.9 Gastro-esophageal reflux disease without esophagitis
CPT/HCPCS: 80053; 80061; 82306

== ENCOUNTER → 2022-02-19 00:44 | Outpatient (CLI) | payer MEDICARE, BC, SELFPAY ==
--- NOTE | 2022-02-19 | DI.DEXA_ITS ---
Exam(s) XR DEXA BONE DENSITY W/WO BRAYAN EXAM: XR DEXA BONE DENSITY W/WO BRAYAN CLINICAL HISTORY: SCREENING FOR OSTEOPOROSIS IN POSTMENOPAUSAL WOMAN,Z78.0 TECHNIQUE: Routine DEXA evaluation of the lumbar spine, hip, or forearm. COMPARISON: Prior DEXA scan 2011 FINDINGS: Performed on a Reclog unit. Lateral image: No compression fracture evident. Lumbar Spine total T-score: -2.2. Prior 2012 reading was -2.1. Hip total T-score:-2.3. Prior 2012 reading was -1.8 Independent reading at the level of the femoral neck yields at T-score of -2.8. Forearm total T-score: -4.5 IMPRESSION: Bone mineral density measures in the osteoporosis range. Fracture risk is high. Note: Any spine fracture indicates 5x risk for subsequent spine fracture and 2x risk for subsequent h ip fracture. World Health Organization criteria for BMD interpretation classify patients: Normal...... T- Score at or above -1.0 Osteopenic... T- Score between -1.0 and -2.5 Osteoporosis... T-Score at or below -2.5
== END ==
PROVIDERS: PCP Nurse Practitioner; Visit Provider Nurse Practitioner Family
DX: Z13.820 Encounter for screening for osteoporosis (principal); M81.0 Age-related osteoporosis without current pathological fracture
CPT/HCPCS: 77080

== ENCOUNTER → 2023-03-10 01:10 | Outpatient (CLI) | payer MEDICARE, SELFPAY ==
--- NOTE | 2023-03-10 | DI.MAMMO_ITS ---
Exam(s) MAMMO SCREENING EXAM: MAMMO SCREENING CLINICAL HISTORY: SCREENING, Z12.39 TECHNIQUE: Mammograms were interpreted according to the usual protocol including computer analysis w [employer] CAD system, tomosynthesis and C-view imaging. COMPARISON: 2014 through 2020 FINDINGS: The breasts are composed of mainly fatty density , Breast Density category A. No suspicious masses or suspicious microcalcifications are seen. No skin thickening or abnormal axillary lymph nodes are seen. There has been no significant change from prior exams. IMPRESSION: BI-RADS Category 1, Negative mammogram Yearly screening mammography is recommended. Breast Density - Category A, fatty density. A negative radiographic report should not delay biopsy if a dominant or clinically suspicious mass is present. Up to ten percent of cancers are not identified on mammography. A negative report may reinforce clinical impression. Adenosis and dense breasts may obscure an underlying neoplasm. False positive reports average 6 to 10%. Patient will receive a letter notifying them of these results.
== END ==
PROVIDERS: PCP Nurse Practitioner Family; Visit Provider Nurse Practitioner Family
DX: Z12.31 Encounter for screening mammogram for malignant neoplasm of breast (principal)
CPT/HCPCS: 77063; 77067

== ENCOUNTER 2024-05-01 01:14 | Outpatient (CLI) | payer MEDICARE, BC, SELFPAY ==
--- NOTE | 2024-05-01 08:45 | DI.MAMMO_ITS ---
Exam(s) MAMMO SCREENING EXAM: MAMMO SCREENING CLINICAL HISTORY: Screening, Z12.31. TECHNIQUE: Bilateral full field digital CC and MLO mammographic images were obtained with 3D tomosyn thesis and utilizing computer aided detection (CAD). COMPARISON: Prior mammograms were reviewed. FINDINGS: There has been no significant change in the appearance and distribution of the fibroglandular tissue. There are no CAD designations. There are no new spiculated masses nor malignant appearing microcalcification groups. There is no significant architectural distortion nor skin thickening-retraction. IMPRESSION: No radiographic evidence of malignancy. BI-RADS Category 1 - Negative Breast Density - Category B - Scattered areas of fibroglandular density Breast density Category C or D implies that the patient has dense breast tissue. Dense breast tissue can make it harder to find cancer on a mammogram. Dense breast tissue is also associated with an incr eased risk of breast cancer. This information about the result of the mammogram report was provided to the patient to raise their awareness. Use this report when you speak with the patient about their risks for breast cancer, which includes their family history. At that time, you may recommend additional screening tests (Ultrasoun d or MRI) as these tests may add significant information. A negative radiographic report should not delay biopsy if a dominant or clinically suspicious mass is present. Up to ten percent of cancers are not identified on mammography. A negative report may reinforce clinical impression. Adenosis and dense breasts may obscure an underlying neoplasm. False positive reports average 6 to 10%. Patient will receive a letter notifying them of these results.
== END 2024-05-01 01:34 ==
LOC: DI 01:14
PROVIDERS: Visit Provider Nurse Practitioner Family
DX: Z12.31 Encounter for screening mammogram for malignant neoplasm of breast (principal)
CPT/HCPCS: 77063; 77067

== ENCOUNTER 2024-07-11 12:24 | Outpatient (REF) | payer MEDICARE, BC, SELFPAY ==
[2024-07-11 20:07] LABS: ALT 12 U/L (14-59); AST 12 U/L (15-37); Albumin 3.4 g/dL (3.4-5.0); Alkaline Phosphatase 82 U/L (46-116); BUN 21 mg/dL (7-18); Bilirubin, Total 0.35 mg/dL (0.2-1.0); CREATININE 0.9 mg/dL (0.55-1.02); Calcium 8.6 mg/dL (8.5-10.1); Calculated LDL 98 mg/dL (<100); Chloride 108 mmol/L (98-107); Cholesterol 177 mg/dL (<200); Estimated GFR 69.64 (mL/min/1.73m2); Glucose 100 mg/dL (74-106); HDL Cholesterol 61 mg/dL (40-60); Potassium 4.6 mmol/L (3.5-5.1); Sodium 143 mmol/L (136-145); Total Protein 6.7 g/dL (6.4-8.2); Triglyceride 94 mg/dL (<150)
== END 2024-07-11 12:25 | disposition home or self-care (01) ==
LOC: NCHCN 12:24
PROVIDERS: Visit Provider Nurse Practitioner Family
DX: E78.5 Hyperlipidemia, unspecified (principal); R73.03 Prediabetes; E55.9 Vitamin D deficiency, unspecified
CPT/HCPCS: 80053; 80061; 82306; 83036

== ENCOUNTER 2025-03-09 15:39 | Outpatient (REF) | payer MEDICARE, BC, SELFPAY ==
[2025-03-09 15:41] LABS: Abs Immature Grans 0.02 10^3/uL (0.0-0.06); HCT 25.1 % (36.0-46.0); Immature Grans % 0.3 %; MCH 16.0 pg (27.0-33.0); MCHC 25.5 % (32.0-36.0); MCV 63 fL (80-95); Platelet Count 353 10^3/uL (130-400); RBC 4.01 10^6/uL (3.93-5.22); RDW 20.9 % (11.7-14.6); RDW-SD 44.9 fL; WBC 7.15 10^3/uL (4.4-10.8)
[2025-03-09 16:18] LABS: Anisocytosis 2+; Hypochromasia 2+; Microcytosis 2+
[2025-03-09 16:19] LABS: Poikilocytes 1+
[2025-03-09 16:22] LABS: Anion Gap 7.6 mmol/L (3-11); BUN 22 mg/dL (7-18); CO2 29.4 mmol/L (21.0-32.0); Calcium 8.6 mg/dL (8.5-10.1); Chloride 104 mmol/L (98-107); Estimated GFR 79.71 (mL/min/1.73m2); Glucose 102 mg/dL (74-106); Magnesium 2.0 mg/dL (1.8-2.4); Potassium 4.0 mmol/L (3.5-5.1); Sodium 141 mmol/L (136-145); Vitamin B12 556 pg/mL (193-986)
[2025-03-09 16:30] LABS: HGB 6.4 g/dL (11.2-15.7)
[2025-03-09 17:38] LABS: Iron 14 ug/dL (50-170); Total Iron Binding Capacity 490 ug/dL (250-450); Transferrin Sat 3 % (15-50)
[2025-03-09 17:51] LABS: Ferritin 3 ng/mL (8-252)
== END 2025-03-09 15:40 | disposition home or self-care (01) ==
LOC: NCHCN 15:39
PROVIDERS: Visit Provider Student in an Organized Health Care Education/Training Program
DX: D64.9 Anemia, unspecified (principal); I10 Essential (primary) hypertension; K21.9 Gastro-esophageal reflux disease without esophagitis
CPT/HCPCS: 80048; 82607; 82728; 83540; 83550; 83735; 85025

== ENCOUNTER 2025-03-09 17:46 | Emergency (ER) | payer MEDICARE, BC, SELFPAY ==
[2025-03-09] VITALS (122 sets, daily range): BP systolic 104–134; BP diastolic 49–70; PULSE 64–104; RESP 14–25; TEMP 36.6–37.3; O2SAT 94–98
--- NOTE | 2025-03-09 17:51 | W.ED.GENAD ---
Discharge Plan Disposition Patient Disposition: Home Condition: Good Discharge Details Clinical Impression: Microcytic anemia Primary Care Provider: Unknown,Unknown ED Provider: Santiago Monzon and New Rx's Prescriptions: Continued levalbuterol HCl 1.25 mg/3 mL solution for nebulization 1.25 mg inhalation Q6H PRN potassium citrate 10 mEq (1,080 mg) tablet extended release 20 meq PO BID hydrochlorothiazide 12.5 mg capsule 12.5 mg PO DAILY cholecalciferol (vitamin D3) 1,250 mcg (50,000 unit) capsule 1,250 mcg PO QWEEK alendronate 70 mg tablet 70 mg PO QWEEK fluticasone propion-salmeterol [Advair Diskus] 1 EACH blister with device 1 ea Inhalation BID Rx Instructions: 500/50 omeprazole 20 MG capsule,delayed release(DR/EC) 20 mg PO DAILY albuterol sulfate [Proventil HFA] 6.7 GM HFA aerosol inhaler 1 - 2 puff Inhalation PRN montelukast 10 mg tablet 10 mg PO DAILY Discharge Instructions Instructions: Anemia, Possibly From Low Iron, Adult ED Additional Instructions: You were seen for very low hemoglobin. You were transfused 2 units of blood. Please follow-up with primary care next week. This appears likely to be related to low iron. Return to ED for any syncope, chest pain, shortness of breath, black or dark stool, vomiting of blood, other concerns. HPI General Mode of arrival: ambulatory. Date/Time Provider Initiated Documentation: 03/09/25 17:51. Limitations to Documentation: no limitations. Information obtained by: patient, RN notes reviewed and old records reviewed. HPI Narrative: Patient presents to the ED on advice from her primary care for low blood count. Patient had seen primary care today for annual wellness checkup. She has no specific complaints other than some fatigue but has chalked that up to travel to [place] in [place] over this last month. She has not had any episodes of lightheadedness, dizziness, chest pain or pressure, shortness of breath. She denies any black or dark stool. She was found to have a hemoglobin of 6.4 down from previous of 10.2 which seems to be where she seems to run. Related Data Home Medications ?Medication ?Instructions ?Recorded ?Confirmed albuterol sulfate 90 mcg/actuation 1 - 2 puff inhalation PRN 07/23/15 03/09/25 aerosol inhaler (Proventil HFA) fluticasone 500 mcg-salmeterol 50 1 ea inhalation BID 07/23/15 03/09/25 mcg/dose blistr powdr for inhalation (Advair Diskus) omeprazole 20 mg capsule,delayed 20 mg PO DAILY 07/23/15 03/09/25 release montelukast 10 mg tablet 10 mg PO DAILY 06/21/20 03/09/25 levalbuterol HCl 1.25 mg/3 mL 1.25 mg inhalation Q6H PRN 09/13/20 03/09/25 solution for nebulization hydrochlorothiazide 12.5 mg capsule 12.5 mg PO DAILY 04/10/21 03/09/25 potassium citrate 10 mEq (1,080 20 meq PO BID 04/10/21 03/09/25 mg) tablet,extended release alendronate 70 mg tablet 70 mg PO QWEEK 03/25/23 03/09/25 cholecalciferol (vitamin D3) 1,250 1,250 mcg PO QWEEK 03/25/23 03/09/25 mcg (50,000 unit) capsule Allergies Allergy/AdvReac Type Severity Reaction Status Date / Time No Known Allergies Allergy Unverified 03/09/25 17:49 General Stated Complaint: GenMedical ALEXEI: 3 Exam Narrative Exam Narrative: Const: WDWN female in NAD. VS per triage. HEENT: NC/AT. Normal facial exam. Neck: Supple. Trachea midline. Lungs: Normal respiratory effort. Neuro: A+O x 3. Normal speech, mentation. Cranial nerves II - XII grossly intact. No gross motor or sensory deficit. Course Vital Signs Vital signs: Vital Signs Temperature 98 F 03/09/25 17:47 Pulse 104 H 03/09/25 17:47 Respiratory Rate 16 03/09/25 17:47 Blood Pressure 118/70 03/09/25 17:47 Pulse Oximetry 95 03/09/25 17:47 Temperature 98 F 03/09/25 17:47 Temperature Source Tympanic 03/09/25 17:47 Pulse 104 H 03/09/25 17:47 Respiratory Rate 16 03/09/25 17:47 Blood Pressure 118/70 03/09/25 17:47 Pulse Oximetry 95 03/09/25 17:47 Oxygen Delivery Method Room Air 03/09/25 17:47 Oxygen Flow Rate 0 03/09/25 17:47 Pain Level 0 03/09/25 17:47 Medical Decision Making Patient presenting to ED after being referred in for significant anemia with a hemoglobin of 6.4. She seems to be relatively asymptomatic other than for fatigue. She denies having any dark or black stool. Her other laboratory studies done today shows depleted iron stores and a microcytic anemia. Her vitamin B12 is normal. This would suggest likelihood of iron deficient anemia. Given the level of hemoglobin, she would benefit from at least one unit of blood. I have discussed all the risk and benefits with her. She is agreeable to transfusion. We will do a repeat H&H to confirm. If hemoglobin remains less than 7 will plan transfusion. She will need further outpatient workup that may include endoscopy though she did have a colonoscopy in 2020 which was completely fine. Hemoglobin confirmed low, 6.0 here. Patient consented for transfusion of 2 units packed red cells. Presumed discharge once blood transfused to follow-up with primary care as outpatient. Medical Records Medical records reviewed: Yes I reviewed the patient's medical records. Medical records narrative: see [facility] Lab Data Lab results reviewed: Yes I reviewed the patient's lab results. Lab results narrative: see [facility] All Active Problems (Updated 03/09/25 @ 20:01 by Santiago Monzon MD) Microcytic anemia (Acute) Prediabetes (Acute) Discharge planning issues (Acute) DVT prophylaxis (Acute) Sepsis with hypotension (Acute) S/P cystoscopy with ureteral stent placement (Acute) Several; most recent 06/14/2020 at [facility] [place] Cornelius Sensorineural hearing loss, bilateral (Acute 11/11/15) Sepsis (Acute) UTI (urinary tract infection) (Acute) Sebaceous cyst (Acute 04/05/17) Neoplasm of unspecified nature of bone, soft tissue, and skin (Acute 04/05/17) Inclusion cyst (Acute 05/03/17) Bilateral kidney stones (Acute 07/23/15) Left ureteral stone (Acute) Medical History Hiatal hernia Osteopenia Hyperlipidemia Asthma GERD (gastroesophageal reflux disease) Hydronephrosis with urinary obstruction due to ureteral calculus Bilateral ureteral calculi Surgical History Normal colonoscopy (~04/2021) H/O removal of cyst L face Status post total left knee replacement S/P partial hysterectomy H/O nephrolithotomy with removal of calculi Status post laser lithotripsy of ureteral calculus most recent 06/14/2020, Dr Cornelius at [facility] [place] Family History Father Heart disease Stroke Hypertension Cancer lung, head and neck cancer - prior smoker Mother Hypertension Social History Smoking/Tobacco Use Status: Never Smoking risk assessment performed?: Yes Alcohol Intake: current Alcohol Intake frequency: a few times a month Drug use: Never Substance use type: does not use Do you feel safe at home: Yes Do you feel safe in your relationship?: Yes
[2025-03-09 18:59] LABS: HCT 23.2 % (36.0-46.0)
[2025-03-09 19:00] LABS: HGB 6.0 g/dL (11.2-15.7)
[2025-03-10 00:44] VITALS: BP 134/66; PULSE 68; RESP 17; TEMP 36.9; O2SAT 96
== END 2025-03-10 00:48 | disposition home or self-care (01) ==
LOC: ER 20:25
PROVIDERS: Emergency Provider Emergency Medicine
DX: D50.9 Iron deficiency anemia, unspecified (principal); R53.83 Other fatigue
CPT/HCPCS: 36430; 86850; 86900; 86901; 86920; 99285; 85014; 85018; 99284; P9016

== ENCOUNTER → 2025-03-26 10:26 | Outpatient (BNVA) | payer MEDICARE, BC, SELFPAY | PROVIDERS: PCP Student in an Organized Health Care Education/Training Program; Referring Provider Student in an Organized Health Care Education/Training Program; Visit Provider Student in an Organized Health Care Education/Training Program | DX: D64.9 Anemia, unspecified (principal) | CPT/HCPCS: 99213 ==

== ENCOUNTER 2025-04-04 15:09 | Outpatient (REF) | payer MEDICARE, BC, SELFPAY ==
[2025-04-04 16:01] LABS: HCT 36.6 % (36.0-46.0); HGB 10.0 g/dL (11.2-15.7)
[2025-04-04 16:41] LABS: Iron 154 ug/dL (50-170)
[2025-04-04 18:46] LABS: Ferritin 20 ng/mL (8-252)
== END 2025-04-04 15:10 | disposition home or self-care (01) ==
LOC: NCHCN 15:09
PROVIDERS: PCP Student in an Organized Health Care Education/Training Program; Visit Provider Student in an Organized Health Care Education/Training Program
DX: D50.9 Iron deficiency anemia, unspecified (principal)
CPT/HCPCS: 82728; 83540; 85014; 85018

== ENCOUNTER 2025-04-05 01:45 | Outpatient (CLI) | payer MEDICARE, BC, SELFPAY ==
--- NOTE | 2025-04-05 | DI.DEXA_ITS ---
Exam(s) XR DEXA BONE DENSITY W/WO BRAYAN EXAM: XR DEXA BONE DENSITY W/WO BRAYAN CLINICAL HISTORY: SENILE OSTEOPOROSIS M81.0 MONITORING ON ALENDRONATE TECHNIQUE: [employer] C densitometer analysis of left hip, lumbar spine and left forearm. Lateral survey image of the thoracic and lumbar spine. COMPARISON: DX DEXA BONE DENSITY WITH BRAYAN from 02/29/2012 CR XR DEXA BONE DENSITY W/WO BRAYAN from 02/19/2022 FINDINGS: Lateral view of the thoracic and lumbar spine shows no evidence of compression fractures. Bone mineral density measurements of the lumbar spine correspond to a total T- score of -2.1, consistent with osteopenia, unchanged from prior exams. Bone mineral density measurements of the left hip correspond to a total T-score of -2.4. This represents a 12.7 percent decrease from 2021 and a 10.3 percent decrease from 2011. The femoral neck T-score is -2.7, in the osteoporotic range. Theleft forearm bone mineral density measurements correspond to a T-score of the distal 3rd of -4.0, in the osteoporotic range. This is not significantly changed from 2021 but represents a 6.5 percent decrease compared to 2011. IMPRESSION: Stable osteopenia of the lumbar spine. Osteoporosis of the hip and forearm.
== END 2025-04-05 02:05 ==
LOC: DI 01:45
PROVIDERS: PCP Student in an Organized Health Care Education/Training Program; Visit Provider Student in an Organized Health Care Education/Training Program
DX: M81.0 Age-related osteoporosis without current pathological fracture (principal)
CPT/HCPCS: 77080

== ENCOUNTER 2025-04-20 07:47 | Day surgery (SDC) | payer MEDICARE, BC, SELFPAY ==
[2025-04-20 08:16] VITALS: BP 109/65; PULSE 70; RESP 16; TEMP 36.7; O2SAT 98
[2025-04-20] MEDS: Lactated Ringers 1,000 ML 80 ML IV (08:35)
[2025-04-20 08:54] VITALS: BMI 27.3
--- NOTE | 2025-04-20 08:54 | W.ANESPRE ---
General Info Date of Service Date Performed: 04/20/25 Height: 5 ft 2 in Weight: 67.8 kg Body Mass Index (BMI): 27.3 Surgical Procedure: Operation Date: 04/20/25 09:20 Proposed Procedure Side Surgeon p Colonoscopy/Gastroscopy Nury Cedeno MD Actual Procedure Side Surgeon p Colonoscopy/Gastroscopy Not Applicable Nury Cedeno MD Pre-Op Diagnosis Post-Op Diagnosis SCREENING COLONOSCOPY ANEMIA Meds Allergies and Home Medications Allergies Allergy/AdvReac Type Severity Reaction Status Date / Time animal dander AdvReac Mild Unknown Verified 04/20/25 08:07 Home Medication ?Medication ?Instructions ?Recorded albuterol sulfate 90 mcg/actuation 1 - 2 puff inhalation PRN 07/23/15 aerosol inhaler (Proventil HFA) fluticasone 500 mcg-salmeterol 50 1 ea inhalation BID 07/23/15 mcg/dose blistr powdr for inhalation (Advair Diskus) montelukast 10 mg tablet 10 mg PO DAILY 06/21/20 levalbuterol HCl 1.25 mg/3 mL 1.25 mg inhalation Q6H PRN 09/13/20 solution for nebulization hydrochlorothiazide 12.5 mg capsule 12.5 mg PO DAILY 04/10/21 potassium citrate 10 mEq (1,080 20 meq PO BID 04/10/21 mg) tablet,extended release cholecalciferol (vitamin D3) 1,250 1,250 mcg PO QWEEK 03/25/23 mcg (50,000 unit) capsule bisacodyl 5 mg tablet,delayed 5 mg PO ONCE Colonoscopy Bowel 03/26/25 release Prep #4 tabs ferrous sulfate 325 mg (65 mg 325 mg PO DAILY 03/26/25 iron) tablet omeprazole 20 mg capsule,delayed 40 mg PO DAILY 03/26/25 release polyethylene glycol 3350 17 238 g PO ONCE #238 grams 03/26/25 gram/dose oral powder Current Visit Medications: Current Medications Generic Name Dose Route Start Last Admin Trade Name Freq PRN Reason Stop Dose Admin Ringer's Solution 1,000 mls @ 80 mls/hr 04/20/25 06:00 04/20/25 08:35 IV 04/20/25 23:59 80 mls/hr INFUSION ALEJANDRA Administration IV Miscellaneous Supplies 1 each 04/20/25 06:00 Iv Access IV 04/20/25 23:59 DIRECTED ALEJANDRA Sodium Chloride 0 ml 04/20/25 06:00 Normal Saline Flush 10 Ml Syr IV 04/20/25 23:59 PRN PRN Sodium Chloride 0 ml 04/20/25 06:00 Normal Saline 10 Ml Vial IJ 04/20/25 23:59 DIRECTED PRN Sterile Water 0 ml 04/20/25 06:00 Water,Injection,Sterile 10 Ml Vial IJ 04/20/25 23:59 DIRECTED PRN PFSH Active Problems Active Problems: Problem Status Onset Code Presbycusis, bilateral Acute H91.13 Anemia Chronic D64.9 Prediabetes Acute R73.03 Pyelonephritis Resolved N12 Dehydration Resolved E86.0 Discharge planning issues Acute Z02.9 DVT prophylaxis Acute Z29.9 HORACIO (acute kidney injury) Resolved N17.9 Sepsis with hypotension Acute A41.9, I95.9 Complicated UTI (urinary tract infection) Resolved N39.0 Sepsis Resolved A41.9 S/P cystoscopy with ureteral stent placement Acute Z96.0 Sensorineural hearing loss, bilateral Acute 11/11/15 H90.3 Sepsis Acute A41.9 UTI (urinary tract infection) Acute N39.0 Sebaceous cyst Acute 04/05/17 L72.3 Neoplasm of unspecified nature of bone, soft tissue, and skin Acute 04/05/17 D49.2 Inclusion cyst Acute 05/03/17 L72.0 Bilateral kidney stones Acute 07/23/15 N20.0 Left ureteral stone Acute N20.1 Medical History Medical History Bilateral hearing loss Senile osteoporosis Pain, joint, shoulder, right Vitamin D deficiency Idiopathic osteoarthritis Presence of total knee joint prosthesis Hearing loss of left ear Allergic rhinitis Diaphragmatic hernia Kidney stone Moderate persistent asthma, uncomplicated Reduced libido Essential hypertension Hiatal hernia Osteopenia Hyperlipidemia Asthma GERD (gastroesophageal reflux disease) Hydronephrosis with urinary obstruction due to ureteral calculus Bilateral ureteral calculi Surgical History Surgical History H/O local excision of skin lesion S/P excision of lipoma History of colonoscopy History of esophagogastroduodenoscopy (EGD) Normal colonoscopy (~04/2021) H/O removal of cyst L face Status post total left knee replacement S/P partial hysterectomy H/O nephrolithotomy with removal of calculi Status post laser lithotripsy of ureteral calculus most recent 06/14/2020, Dr Cornelius at [facility] [place] Tobacco Smoking/Tobacco Use Status: Never Alcohol Alcohol Intake: current Alcohol intake frequency: a few times a month Substance Use Substance use: Never Substance use type: does not use Vital Signs and Lab Results Vital Signs Most Recent Vital Signs in EMR: Most Recent Vital Signs Temp Pulse Resp BP Pulse Ox 36.7 C 70 16 109/65 98 04/20/25 08:16 04/20/25 08:16 04/20/25 08:16 04/20/25 08:16 04/20/25 08:16 Lab Results Complete Blood Count: Hgb, (11.2-15.7) 10.0 g/dL L 04/04/25, 10:45 Hct, (36.0-46.0) 36.6 % 04/04/25, 10:45 Anesthesia Assessment and Plan Anesthesia History Personal History: No History of Anesthesia Complications Family History: No Family History of Anesthesia Complications Exercise Tolerance Exercise Tolerance: Metabolic Equivalents>4 Pertinent Negatives Pertinent Negatives: No Symptoms of GERD Cardiac & Pulmonary Exam Cardiac Exam: Normal S1/S2 Heart Sounds Pulmonary Exam: Clear Bilateral Breath Sounds Implantable Cardiac Device Does patient have a Pacemaker or an ICD?: No Airway Exam Known Difficult Airway: No Mallampati Class: 2 Mouth Opening: Normal (> 3cm) Thyromental Distance: Greater than 3 cm Neck Range of Motion: Full ROM Neck Circumference: Normal Teeth Condition: Normal Dentition ASA Classification ASA Score: ASA 2 Emergency Case?: No NPO Status NPO Status: NPO Clears >2 hours, Solids >8 hours Anesthesia Plan Resuscitation Status: Full Code Anesthesia Technique: General Anesthesia Airway Planned: Natural Airway Monitors Used: Standard Monitors
--- NOTE | 2025-04-20 09:09 | BOWEL_PTH ---
PATIENT: Stephanie Pollard LOC: [facility] U#:[id number] AGE/SX: 69/F ROOM: RE04/20/[address]: Nury Cedeno : 1955 BED: DIS: 04/20/2025 SPEC #: [id number] RECD: 04/20/25 11:09 STATUS: VAHE RE #: [id number] ADRIAN: 04/20/25 09:[address]: Nury Cedeno DEPT: Surgical Specimen RECD BY: Sade Kee ENTERED: 04/20/25 11:10 SP TYPE: Bowel OTHR DR: Surendra Bennett Tissues: 1 - BIOPSY BOWEL 2 - STOMACH BIOPSY 3 - STOMACH BIOPSY 4 - ESOPHAGUS BIOPSY Procedures: GROSS AND MICRO LEVEL 4 Comments: [id number]
[2025-04-20 09:43] VITALS: BP 102/66; PULSE 80; RESP 18; TEMP 36; O2SAT 92
--- NOTE | 2025-04-20 09:43 | W.PM.DSUDISC ---
Date of service: 04/20/25 Discharge Plan Disposition Patient Disposition: Home Condition: Good Discharge Details Reason For Visit: Anemia Attending Provider: Nury Cedeno Primary Care Provider: Surendra Bennett Home Meds and New Rx's Prescriptions: Continued levalbuterol HCl 1.25 mg/3 mL solution for nebulization 1.25 mg inhalation Q6H PRN potassium citrate 10 mEq (1,080 mg) tablet extended release 20 meq PO BID hydrochlorothiazide 12.5 mg capsule 12.5 mg PO DAILY cholecalciferol (vitamin D3) 1,250 mcg (50,000 unit) capsule 1,250 mcg PO QWEEK ferrous sulfate 325 mg (65 mg iron) tablet 325 mg PO DAILY fluticasone propion-salmeterol [Advair Diskus] 1 EACH blister with device 1 ea Inhalation BID Rx Instructions: 500/50 albuterol sulfate [Proventil HFA] 6.7 GM HFA aerosol inhaler 1 - 2 puff Inhalation PRN omeprazole 20 mg capsule,delayed release(DR/EC) 40 mg PO DAILY montelukast 10 mg tablet 10 mg PO DAILY Discontinued bisacodyl 5 mg tablet,delayed release (DR/EC) 5 mg PO ONCE Qty: 4 0RF Rx Instructions: Per Colonoscopy bowel prep instructions polyethylene glycol 3350 17 gram/dose powder 238 g PO ONCE Qty: 238 0RF Rx Instructions: For Colonoscopy bowel prep, as directed by office Discharge Instructions Instructions: Hiatal hernia, Diverticulosis Additional Instructions: Your upper endoscopy and colonoscopy went well today. On your upper endoscopy you did have a evidence of a hiatal hernia. This is when the stomach goes above the diaphragm into the chest. You also had some non-concerning gastric polyps. On your colonoscopy you had evidence of diverticulosis or small outpouchings of the colon. There was no evidence during either procedure of anything bleeding. Please contact the general surgery office if you have any questions or concerns. 1. If tolerated, consume a soft, low fiber diet for 1-2 days. [address] Do not drive, drink alcohol, operate machinery, make critical decisions, or do activities that require coordination or balance for 24 hours. 3. Because air was put into your colon during the procedure, expelling air from your rectum (passing gas or farting) is normal. 4. You may not have a bowel movement for 1-3 days because of the colonoscopy prep. This is normal. 5. Go directly to the emergency room if you notice any of the following: Develop chills (warm to touch), or if you have a thermometer and your temperature is above 101 Difficulty breathing or difficultly swallowing Persistent vomiting Severe abdominal pain, other than gas cramps Severe chest pain Black, tarry stools Any bleeding ? exceeding one tablespoon 6. Call your physician if the site where your intravenous was started becomes red, swollen, painful, and warm to touch. 7. Your physician has reviewed your pre-procedure medications. Please continue to take those medications as previously ordered. You will be given specific information/education regarding any changes to your medications before leaving. Stand Alone Forms: Anesthesia Discharge InstYared, Orion Faye (DSU) Activity:: Activity as Tolerated Diet:: As Tolerated Discharge Orders Discharge Orders: Discharge Order (Routine); Ordered 04/20/25 Ordered By: Nury Cedeno
--- NOTE | 2025-04-20 09:47 | W.PM.ENDDOP ---
Date of service: 04/20/25 Time of Service: 09:47 Endoscopy Report DATE OF PROCEDURE: 04/20/25 PRE-OP DIAGNOSIS: Anemia, GERD POST-OP DIAGNOSIS: same PROCEDURE: Upper endoscopy with biopsy SURGEON: Nury Cedeno ANESTHESIA TYPE: General:No Airway ESTIMATED BLOOD LOSS: 2 PATHOLOGY: other (Biopsy of duodenum, antrum, GE junction; gastric polypectomy ) COMPLICATIONS: None DISPOSITION: PACU INDICATIONS: Patient is a 69 yo female who presented for upper endoscopy and colonoscopy given significant anemia. FINDINGS: Biopsy, antrum with cautery and GE junction. Overall fairly significantly sized hiatal hernia. Evidence of gastric polyps and gastric polypectomy performed. PROCEDURE DESCRIPTION: After adequate sedation, the upper endoscope was inserted and advanced in the duodenum under direct visualization. The scope was withdrawn and the mucosa inspected. The duodenum appeared normal. A cold forcep biopsy of the duodenum was performed. The stomach was normal with no evidence of ulcerations or erosions. ?The antrum area was biopsied and also checked for H. pylori.? There was evidence of some non-concerning gastric polyps of which a gastric polypectomy was performed. Retroflexion view in the stomach which showed a large hiatal hernia. At the lower esophagus Z line area, this was inspected and noted to be normal. No evidence of Tinsley?s esophagus or strictures. A cold forcep biopsy was performed at the GE junction. Otherwise, the esophagus was normal. The scope was completely withdrawn from the patient. The patient tolerated the procedure well with no immediate complications.
--- NOTE | 2025-04-20 09:51 | W.COLOREPORT ---
Date of service: 04/20/25 Time of Service: 09:51 Colonoscopy Report Date of procedure: 04/20/25 Pre-op diagnosis general: Anemia Post-op diagnosis procedure note: same Procedure: Colonoscopy Surgeon: Nury Cedeno Anesthesia Type: General:No Airway Estimated blood loss (mL): 0 Pathology: none sent Complications: None Disposition: PACU Indications: Patient is a 69 yo female who presented to the office with significant anemia with plan for upper endoscopy and colonoscopy. Prep: Miralax/Dulcolax Procedure Start Time: 09:04 Procedure End Time: 09:37 Retraction Time: 10 Findings: Evidence of diverticulosis of the entire colon. No evidence of bleeding. Procedure Description: Informed consent was obtained. The patient was taken to the endoscopy suite and placed in the left lateral decubitus position. After adequate intravenous sedation, digital rectal exam was performed, which was normal. A colonoscope was inserted into the rectum and negotiated to the cecum. The ileocecal valve and appendiceal orifice were identified. The entire colonic mucosa was then carefully circumferentially inspected upon slow withdrawal of the scope. The cecum, ascending, transverse, and descending colon were all normal. There was evidence of diverticulosis scattered throughout the entire colon. Retroflexion in the rectum was unremarkable. The patient tolerated the procedure well with no complications. Postoperatively, the patient was transferred to the recovery room in stable condition. [place] Bowel Prep [place] Bowel Prep Right Colon: 3 Left Colon: 3 Transverse Colon: 3 Total Score: 9
--- NOTE | 2025-04-20 09:54 | W.ANESPOSTOP ---
Postoperative Evaluation Date, Time and Location Date Performed: 04/20/25 Time Performed: 09:54 Patient Location: Day Surgery Unit Vital Signs Most Recent Imported Vital Signs: Most Recent Vital Signs Temp Pulse Resp BP Pulse Ox 36 C L 80 18 102/66 92 04/20/25 09:43 04/20/25 09:43 04/20/25 09:43 04/20/25 09:43 04/20/25 09:43 Pain Score Most Recent Pain Score: Most Recent Pain Score Pain Level 0 04/20/25 09:43 Assessment Mental Status: Awake (Alert & Oriented to Patient Baseline) Airway and Respiratory Function: Patent airway with normal (patient baseline) respiratory exam Cardiovascular Function: Hemodynamically Stable Hydration Status: Adequately Hydrated Nausea & Vomiting: No Nausea or Vomiting Pain: Pt. Denies Any Pain Peripheral Nerve Block: Patient did not receive a nerve block
[2025-04-20 10:14] VITALS: BP 117/71; PULSE 59; RESP 16; TEMP 37; O2SAT 97
== END 2025-04-20 10:31 | disposition home or self-care (01) ==
PROVIDERS: PCP Student in an Organized Health Care Education/Training Program; Visit Provider Student in an Organized Health Care Education/Training Program
PROC: (CPT 43239; principal; 2025-04-20 09:15)
DX: D64.9 Anemia, unspecified (principal); K57.40 Diverticulitis of both small and large intestine with perforation and abscess without bleeding; K21.9 Gastro-esophageal reflux disease without esophagitis; K31.7 Polyp of stomach and duodenum
CPT/HCPCS: 43239; 45378; 88305; J2003; J2704

== ENCOUNTER 2025-05-02 01:26 | Outpatient (CLI) | payer MEDICARE, BC, SELFPAY ==
--- NOTE | 2025-05-02 | DI.MAMMO_ITS ---
Exam(s) MAMMO SCREENING EXAM: MAMMO SCREENING CLINICAL HISTORY: SCREENING, Z12.31 TECHNIQUE: Bilateral full field digital CC and MLO mammographic images were obtained with 3D tomosynthesis and utilizing computer aided detection (CAD). COMPARISON: Comparison is made with prior examinations. FINDINGS: Masses/Architectural Distortion: No suspicious masses or areas of architectural distortion are present. Microcalcifications: No suspicious pleomorphic-type are seen. Skin Thickening/Nipple Retraction: None. IMPRESSION: 1. No significant interval change with no specific features of malignancy noted. 2. Unless there is more urgent need, screening mammography is recommended, as per [employer] guidelines. BI-RADS Category 1 - Negative Breast Density - Category B - There are scattered areas of fibroglandular density. Breast density Category C or D implies that the patient has dense breast tissue. Dense breast tissue can make it harder to find cancer on a mammogram. Dense breast tissue is also associated with an increased risk of breast cancer. This information about the result of the mammogram report was provided to the patient to raise their awareness. Use this report when you speak with the patient about their risks for breast cancer, which includes their family history. At that time, you may recommend additional screening tests (Ultrasound or MRI) as these tests may add significant information. A negative radiographic report should not delay biopsy if a dominant or clinically suspicious mass is present. Up to ten percent of cancers are not identified on mammography. A negative report may reinforce clinical impression. Adenosis and dense breasts may obscure an underlying neoplasm. False positive reports average 6 to 10%. Patient will receive a letter notifying them of these results.
== END 2025-05-02 01:46 ==
LOC: DI 01:26
PROVIDERS: PCP Student in an Organized Health Care Education/Training Program; Visit Provider Student in an Organized Health Care Education/Training Program
DX: Z12.31 Encounter for screening mammogram for malignant neoplasm of breast (principal)
CPT/HCPCS: 77063; 77067

== ENCOUNTER 2025-05-07 19:25 | Outpatient (REF) | payer MEDICARE, BC, SELFPAY ==
[2025-05-07 21:23] LABS: Abs Immature Grans 0.04 10^3/uL (0.0-0.06); HCT 34.9 % (36.0-46.0); HGB 10.0 g/dL (11.2-15.7); Immature Grans % 0.4 %; MCH 22.2 pg (27.0-33.0); MCHC 28.7 % (32.0-36.0); MCV 77 fL (80-95); MPV 10.2 fL (8.0-11.0); Platelet Count 483 10^3/uL (130-400); RBC 4.51 10^6/uL (3.93-5.22); RDW 25.6 % (11.7-14.6); RDW-SD 67.7 fL; WBC 10.06 10^3/uL (4.4-10.8)
[2025-05-07 21:51] LABS: Anisocytosis 2+; Poikilocytes 1+
[2025-05-07 21:55] LABS: Iron 55 ug/dL (50-170); Total Iron Binding Capacity 432 ug/dL (250-450); Transferrin Sat 13 % (15-50)
[2025-05-07 22:10] LABS: Folate 8.6 ng/mL (8.6-20.0); Vitamin B12 797 pg/mL (193-986)
[2025-05-08 04:33] LABS: Ferritin 24 ng/mL (8-252)
== END 2025-05-07 19:26 | disposition home or self-care (01) ==
LOC: NCHCN 19:25
PROVIDERS: PCP Student in an Organized Health Care Education/Training Program; Visit Provider Student in an Organized Health Care Education/Training Program
DX: D50.9 Iron deficiency anemia, unspecified (principal)
CPT/HCPCS: 82607; 82728; 82746; 83540; 83550; 85025

== ENCOUNTER → 2025-05-14 13:15 | Outpatient (BNVA) | payer MEDICARE, BC, SELFPAY | PROVIDERS: PCP Student in an Organized Health Care Education/Training Program; Referring Provider Student in an Organized Health Care Education/Training Program; Visit Provider Student in an Organized Health Care Education/Training Program | DX: K31.A11 Gastric intestinal metaplasia without dysplasia, involving the antrum (principal); D64.9 Anemia, unspecified | CPT/HCPCS: 99213 ==

== ENCOUNTER 2025-06-18 10:13 | Outpatient (CLI) | payer MEDICARE, BC, SELFPAY ==
[2025-06-18 10:24] LABS: Abs Immature Grans 0.03 10^3/uL (0.0-0.06); HCT 35.8 % (36.0-46.0); HGB 10.6 g/dL (11.2-15.7); Immature Grans % 0.4 %; MCH 23.6 pg (27.0-33.0); MCHC 29.6 % (32.0-36.0); MCV 80 fL (80-95); MPV 9.8 fL (8.0-11.0); Platelet Count 420 10^3/uL (130-400); RBC 4.49 10^6/uL (3.93-5.22); RDW 15.9 % (11.7-14.6); RDW-SD 44.6 fL; WBC 8.01 10^3/uL (4.4-10.8)
[2025-06-18 11:38] LABS: Iron 14 ug/dL (50-170)
[2025-06-18 11:40] LABS: Ferritin 13 ng/mL (7-271)
== END 2025-06-18 10:14 | disposition home or self-care (01) ==
LOC: LBO 10:18
PROVIDERS: PCP Student in an Organized Health Care Education/Training Program; Visit Provider Student in an Organized Health Care Education/Training Program
DX: D50.9 Iron deficiency anemia, unspecified (principal)
CPT/HCPCS: 36415; 82728; 83540; 85025